=== PATIENT | male | born 1970 | race Caucasian/White ===

== ENCOUNTER 2016-07-01 15:20 | Emergency (ER) | payer OTHER ==
[2016-07-01 15:37] VITALS: BP 122/76; PULSE 85; TEMP 97.4; BMI 26.4
[2016-07-01] MEDS ORDERED: ALBUTEROL SO4 2.5/IPRATROPIUM 0.5 INH SOL 3 ML VIAL.NEB. NEB ONE ×2 (17:14)
[2016-07-01] MEDS ORDERED: guaiFENesin/CODEINE 10 ML UNIT-DOSE CUPS PO ONE (17:15)
[2016-07-01] MEDS ORDERED: guaiFENesin/CODEINE 5 ML UNIT-DOSE CUPS PO ONE (17:24)
[2016-07-01] MEDS ORDERED: methylPREDNISolone NA SUCC 125 MG/2 ML VIAL IVPB ONE (18:17)
[2016-07-01] MEDS ORDERED: SODIUM CHLORIDE 1,000 ML IV STA (18:17)
--- NOTE | 2016-07-01 18:22 | PDOC ---
[id number] Illness Initial Comments: 07/01/16 18:27 Mr. Kunz is a 45 y/o male with a PMH of pneumonia, presents to the ED today complaining of increasing SOB. Pt. states that he cannot catch his breath and is having difficulty speaking in full sentences. He admits to chest pain with a deep breath or coughing. He also states that he has been coughing and when he has a fit, it is hard to stop coughing. He had an out patient x-ray on 06/28/16 which showed potential brochiectasis and pneumonitis. He was given augmentin and doxycylin at that time. He was also given an albuterol inhaler. He states he 's had no improvement of his symptoms with antibiotic treatment. Four of his five children have been diagnosed with strep throat. He states that he is worried about his mother who is currently admitted to the hospital. REVIEW OF SYSTEMS: GENERAL/CONSTITUTIONAL: No fever or chills. No weakness. No weight change. HEAD, EYES, EARS, NOSE AND THROAT: No change in vision. No ear pain or discharge. No sore throat. CARDIOVASCULAR: (-) chest pain or palpitations. RESPIRATORY: (+) cough, wheezing, or shortness of breath. GASTROINTESTINAL: No nausea, vomiting, diarrhea or constipation. GENITOURINARY: No dysuria, frequency, or change in urination. MUSCULOSKELETAL: No joint or muscle swelling or pain. No neck or back pain. SKIN: No rash or easy bruising. NEUROLOGIC: No headache, vertigo, loss of consciousness, or loss of sensation. PSYCHIATRIC: No depression or anxiety. ENDOCRINE: No increased thirst. No abnormal weight change. HEMATOLOGIC/LYMPHATIC: No anemia, easy bleeding, or history of blood clots. ALLERGIC/IMMUNOLOGIC: No hives or skin allergy. No latex allergy. <Gauri Brown - Last Filed: 07/01/16 19:11> <Anni Hatfield - Last Filed: 07/01/16 21:53> <Ceci Singh - Last Filed: 07/04/16 15:13> - General Chief Complaint: Respiratory Stated Complaint: RESPIRATORY (PNEUMONIA) Time Seen by Provider: 07/01/16 16:48 Past History - Past Medical History Anemia: No Asthma: No Cancer: No Cardiac Disorders: No CVA: No COPD: No CHF: No Dementia: No Diabetes: No GI Disorders: No Disorders: No HTN: No Hypercholesterolemia: No Suicide Attempt (Hx): No Seizures: No Thyroid Disease: Yes (HYPO) - Surgical History Abdominal Surgery: Yes (RT IN HERNIA) Appendectomy: No Cardiac Surgery: No Cholecystectomy: No Lung Surgery: No Neurologic Surgery: No Orthopedic Surgery: Yes (RT LEG,LT ARM FX) - Immunization History Td Vaccination: Yes TDAP Vaccination: Yes Immunization Up to Date: Yes - Psycho/Social/Smoking Cessation Hx Anxiety: No Suicidal Ideation: No Smoking Status: No Smoking History: Never smoked Years of Tobacco Use: 0 Have you smoked in the past 12 months: No Number of Cigarettes Smoked Daily: 0 Cigars Per Day: 0 Hx Alcohol Use: Yes (SOCIAL) Drug/Substance Use Hx: No Substance Use Type: None <Gauri Brown - Last Filed: 07/01/16 19:11> <Anni Hatfield - Last Filed: 07/01/16 21:53> <Ceci Singh - Last Filed: 07/04/16 15:13> - Past Medical History Allergies/Adverse Reactions: Allergies Allergy/AdvReac Type Severity Reaction Status Date / Time No Known Allergies Allergy Verified 07/01/16 15:37 Home Medications: Ambulatory Orders Albuterol 2.5/Ipratropium 0.5 [Duoneb -] 1 amp NEB Q15M amp 07/01/16 Albuterol Sulfate Inhaler - [Ventolin HFA Inhaler -] 1 - 2 inh PO Q4H PRN #1 inhaler 07/01/16 Amox-Tr/K Cl [Augmentin 875-125mg Tablet -] 1 tab PO BID 07/01/16 Doxycycline Hyclate 100 mg PO BID 07/01/16 Levothyroxine Sodium [Levo-T] 150 mcg PO DAILY 07/01/16 Prednisone 10 mg PO ASDIR #21 tablet 07/01/16 Promethazine HCl [Phenergan Plain 6.25 MG/5 ML -] 10 ml PO BID 07/01/16 *Physical Exam - Vital Signs Last Vital Signs Temp Pulse Resp BP Pulse Ox 97.4 F L 85 20 122/76 98 07/01/16 15:34 07/01/16 15:34 07/01/16 15:34 07/01/16 15:34 07/01/16 15:34 - Physical Exam Comments: 07/01/16 18:42 GENERAL: The patient is awake, alert, and fully oriented, in mild distress. Pt. is tripoding. HEAD: Normal with no signs of trauma. ENT: Pupils equal, round and reactive to light, extraocular movements intact, sclera anicteric, conjunctiva clear. Neck supple. LUNGS: Course wheezing bilaterally. Normal excursion. No respiratory distress or use of accessory muscles. CV: RRR, S1/S2, no MRG. Cap refill < 2 sec. ABDOMEN: Soft, non-distended, non-tender. EXTREMITIES: Normal range of motion, no edema. NEUROLOGICAL: Normal speech, normal gait. CN II-XII grossly intact. PSYCH: Flat affect, depressed mood. Pt. seems anxious on exam. SKIN: Warm, dry, normal turgor, no rashes or lesions noted. 07/01/16 18:44 <Gauri Brown - Last Filed: 07/01/16 19:11> - Vital Signs Last Vital Signs Temp Pulse Resp BP Pulse Ox 97.4 F L 85 20 122/76 98 07/01/16 15:34 07/01/16 15:34 07/01/16 15:34 07/01/16 15:34 07/01/16 15:34 <Anni Hatfield - Last Filed: 07/01/16 21:53> - Vital Signs Last Vital Signs Temp Pulse Resp BP Pulse Ox 97.4 F L 85 20 122/76 98 07/01/16 15:34 07/01/16 15:34 07/01/16 15:34 07/01/16 15:34 07/01/16 15:34 <Ceci Singh - Last Filed: 07/04/16 15:13> ED Treatment Course - LABORATORY CBC & Chemistry Diagram: 07/01/16 18:40 07/01/16 18:40 <Gauri Brown - Last Filed: 07/01/16 19:11> - LABORATORY CBC & Chemistry Diagram: 07/01/16 18:40 07/01/16 18:40 - ADDITIONAL ORDERS Additional order review: Laboratory Results 07/01/16 18:40 Sodium 140 Potassium 3.5 Chloride 104 Carbon Dioxide 23 D Anion Gap 13 BUN 18 Creatinine 0.9 D Creat Clearance w eGFR > 60 Random Glucose 102 Calcium 8.4 L Total Bilirubin 0.4 D AST 14 L ALT 21 D Alkaline Phosphatase 67 Total Protein 7.2 Albumin 3.8 07/01/16 17:23 Influenza Types A,B Antigen (JONO) - Final Nasopharyngeal Swab - Final 07/01/16 18:40 RBC 4.93 MCV 93.6 MCHC 34.3 RDW 13.1 MPV 8.3 Neutrophils % 51.1 D Lymphocytes % 37.6 D Monocytes % 8.2 Eosinophils % 1.9 D Basophils % 1.2 - RADIOLOGY Radiology Studies Ordered: Category Date Time Status CHEST CTA [CT] Stat CT Scan 07/01/16 19:37 Taken - Medications Given in the ED: ED Medications Discontinued Medications Generic Name Dose Route Start Last Admin Trade Name Freq PRN Reason Stop Dose Admin Albuterol/Ipratropium 1 amp 07/01/16 17:14 07/01/16 17:23 Duoneb - NEB 07/01/16 17:15 1 amp ONCE ONE Administration Albuterol/Ipratropium 1 amp 07/01/16 18:30 07/01/16 19:17 Duoneb - NEB 07/01/16 19:01 1 amp Q15M LEORA Administration Guaifenesin/Codeine Phosphate 10 ml 07/01/16 17:15 07/01/16 17:35 Robitussin Ac - PO 07/01/16 17:16 10 ml ONCE ONE Administration Sodium Chloride 1,000 mls @ 1,000 mls/hr 07/01/16 18:17 07/01/16 18:35 Normal Saline - IV 07/01/16 19:16 1,000 mls/hr ASDIR STA Administration Methylprednisolone Sodium Succinate 125 mg 07/01/16 18:17 07/01/16 18:40 Solu-Medrol - IVPB 07/01/16 18:18 125 mg ONCE ONE Administration <Anni Hatfield D - Last Filed: 07/01/16 21:53> - LABORATORY CBC & Chemistry Diagram: 07/01/16 18:40 07/01/16 18:40 - ADDITIONAL ORDERS Additional order review: 07/01/16 17:23 Influenza Types A,B Antigen (JONO) - Final Nasopharyngeal Swab - Final 07/01/16 18:40 RBC 4.93 MCV 93.6 MCHC 34.3 RDW 13.1 MPV 8.3 Neutrophils % 51.1 D Lymphocytes % 37.6 D Monocytes % 8.2 Eosinophils % 1.9 D Basophils % 1.2 - Medications Given in the ED: ED Medications Discontinued Medications Generic Name Dose Route Start Last Admin Trade Name Sulaiman PRN Reason Stop Dose Admin Albuterol/Ipratropium 1 amp 07/01/16 17:14 07/01/16 17:23 Duoneb - NEB 07/01/16 17:15 1 amp ONCE ONE Administration Albuterol/Ipratropium 1 amp 07/01/16 18:30 07/01/16 19:17 Duoneb - NEB 07/01/16 19:01 1 amp Q15M LEORA Administration Guaifenesin/Codeine Phosphate 10 ml 07/01/16 17:15 07/01/16 17:35 Robitussin Ac - PO 07/01/16 17:16 10 ml ONCE ONE Administration Sodium Chloride 1,000 mls @ 1,000 mls/hr 07/01/16 18:17 07/01/16 18:35 Normal Saline - IV 07/01/16 19:16 1,000 mls/hr ASDIR STA Administration Methylprednisolone Sodium Succinate 125 mg 07/01/16 18:17 07/01/16 18:40 Solu-Medrol - IVPB 07/01/16 18:18 125 mg ONCE ONE Administration <Ceci Singh - Last Filed: 07/04/16 15:13> Medical Decision Making - Medical Decision Making 07/01/16 17:45 Mr. Kunz is a 45 y/o male presenting to the ED with worsening SOB. On initial general apearrance, pt. appears to be SOB and having difficulty speaking in full sentences. However, pt calms down when speaking with him and pt. will sit up to breathe with little issue. On exam, pt. affect is flat and pt. makes poor eye contact. He is tearful and states he is worried about his mother who is in the hospital. Will treat symptoms at this time and draw basic labs and swabs for source of infection. 1. Will order basic labs, flu swab and EKG 2. Will order repeat CXR to compare to the xray on 06/28/16. 3. Will order duoneb treatment and robitussin with codeine for symptom management Will re-evaluate 07/01/16 18:25 Pt. states that the duoneb treatment seemed to help. Will order a duoneb set (3 duonebs 15 minutes a part). Will also order IV solumedrol at this time. He can continue to take his home medications at this time. EKG shows a rate of 77, NSR, with no acute ischemic changes. 07/01/16 18:40 Influenza swab is negative. Waiting on CXR read. 07/01/16 19:12 Pt. is feeling better after duoneb treatments. Sign out given to Liu Scruggs. Case was discussed. Waiting on labs and CXR. Pt. can be discharged if no acute changes. <Gauri Brown - Last Filed: 07/01/16 19:11> *DC/Admit/Observation/Transfer <Gauri Brown - Last Filed: 07/01/16 19:11> - Discharge Dispostion Admit: No <Anni Hatfield - Last Filed: 07/01/16 21:53> - Attestations Physician Attestion: I independently examined and evaluated this patient in conjunction with SHEILA Brown, mid-level practitioner. I reviewed the case and agree with the mid- level practitioner's assessment, diagnosis and disposition. On exam patient is ill-appearing with a depressed affect. Speaking full sentences, moving air well on lung exam. CXR reviewed, showed poss pneumonitis. Will treat with nebs, steroids. Poss DC home if improved. <Ceci Singh - Last Filed: 07/04/16 15:13> Diagnosis at time of Disposition: Pneumonitis - Discharge Dispostion Disposition: HOME - Prescriptions Prescriptions: Prednisone 10 mg PO ASDIR #21 tablet Albuterol Sulfate Inhaler - [Ventolin HFA Inhaler -] 1 - 2 inh PO Q4H PRN #1 inhaler PRN Reason: DIFF BREATHING - Referrals Referrals: Saeid Ashley MD [Primary Care Provider] - - Patient Instructions Printed Discharge Instructions: DI for Pneumonia -- Adult Additional Instructions: FOLLOW UP WITH YOUR DOCTOR DISCUSSED. CONTINUE TAKING YOUR MEDICATIONS PRESCRIBED. TAKE MEDICATIONS DIRECTED. RETURN IF WORSENING OF SYMPTOMS OR ANY CONCERNS FOR FURTHER EVALUATION. Print Language: SLOVAK Progress Note - Progress Note Progress Note: PATIENT CONDITION IMPROVED. TALKING IN FULL SENTENCES. NO SOB/DYSPNEA. CTA- NO PE. +GALLSTONES. WILL D/C TO HOME WITH RX FOR PREDNISONE AND INHALER. PATIENT AGREED TO F/U WITH PCP. <Anni Hatfield D - Last Filed: 07/01/16 21:53>
[2016-07-01] MEDS ORDERED: methylPREDNISolone NA SUCC 125 MG/2 ML VIAL ONE (18:28)
[2016-07-01] MEDS: ALBUTEROL SO4 2.5/IPRATROPIUM 0.5 INH SOL 3 ML VIAL.NEB. NEB SCH ×3 (18:30→19:17)
[2016-07-01 18:53] LABS: BASOPHIL 1.2 % (0-2.0); EOSINOPHIL 1.9 % (0-4.5); MCH 32.1 pg (25.7-33.7); MCHC 34.3 g/dl (32.0-35.9); MEAN CELL VOLUME 93.6 fl (80-96); MEAN PLT VOLUME 8.3 fl (7.5-11.1); NEUTROPHILS 51.1 % (42.8-82.8); PLATELET COUNT 161 K/MM3 (134-434); RDW 13.1 % (11.9-15.9); WHITE BLOOD COUNT 4.6 K/mm3 (4.0-10.0)
[2016-07-01 20:03] LABS: ALBUMIN 3.8 g/dl (3.4-5.0); ALK PHOS 67 U/L (45-117); ANION GAP 13 (8-16); BILIRUBIN,TOTAL 0.4 mg/dL (0.2-1.0); CALCIUM 8.4 mg/dL (8.5-10.1); CO2 23 mmol/L (21-32); CREATININE 0.9 mg/dL (0.7-1.3); GLUCOSE,RANDOM 102 mg/dL (74-106); SGOT/AST 14 U/L (15-37); SGPT/ALT 21 U/L (12-78); TOT PROT 7.2 g/dl (6.4-8.2)
--- NOTE | 2016-07-02 10:27 | EKG ---
Test Reason : Blood Pressure : / mmHG Vent. Rate : 077 BPM Atrial Rate : 077 BPM P-R Int : 164 ms QRS Dur : 074 ms QT Int : 356 ms P-R-T Axes : 049 -03 033 degrees QTc Int : 402 ms NORMAL SINUS RHYTHM SEPTAL INFARCT , AGE UNDETERMINED ABNORMAL ECG WHEN COMPARED WITH ECG OF 12-MAY-2015 03:24, FUSION COMPLEXES ARE NO LONGER PRESENT SEPTAL INFARCT IS NOW PRESENT Confirmed by CLARK CAGLE, ALLISON ([id number]) on 07/02/2016 10:26:49 AM Referred By: Confirmed By:ALLISON RODAS MD
== END 2016-07-01 22:10 | disposition home or self-care (01) ==
LOC: JER 15:20
PROC: 3E0F7GC Introduction of Other Therapeutic Substance into Respiratory Tract, Via Natural or Artificial Opening (ICD-10-PCS; principal; 2016-07-01)
PROC: 3E0F7GC Introduction of Other Therapeutic Substance into Respiratory Tract, Via Natural or Artificial Opening (ICD-10-PCS; 2016-07-01)
PROC: 3E0337Z Introduction of Electrolytic and Water Balance Substance into Peripheral Vein, Percutaneous Approach (ICD-10-PCS; 2016-07-01)
PROC: 3E0333Z Introduction of Anti-inflammatory into Peripheral Vein, Percutaneous Approach (ICD-10-PCS; 2016-07-01)
DX: J18.9 Pneumonia, unspecified organism (principal)
CPT/HCPCS: 36415; 71020-TC; 71275-TC; 80053; 85025; 87804; 93005; 93010; 94640; 96361; 96374; 99283-25

== ENCOUNTER 2017-08-23 18:12 | Observation (INO) | payer OTHER ==
[2017-08-23] MEDS ORDERED: KETOROLAC TROMETHAMINE 30 MG/1 ML VIAL IM ONE (18:23)
[2017-08-23] MEDS ORDERED: CYCLOBENZAPRINE HCL 10 MG TABLET (FP) PO ONE (18:23)
--- NOTE | 2017-08-23 18:23 | PDOC ---
Rapid Medical Evaluation Time Seen by Provider: 08/23/17 18:17 Medical Evaluation: Allergies Allergy/AdvReac Type Severity Reaction Status Date / Time No Known Allergies Allergy Verified 07/01/16 15:37 08/23/17 18:17 I have performed a brief in-person evaluation of this patient. The patient presents with a chief complaint of: pain to right chest since 5am Patient reports pain to right chest radiating into right shoulder making it hard to lift right arm. Patient reports pain is worse with movement. States work lifting Pertinent physical exam findings: NAD lungs clear bilaterally tenderness in right chest unable to abduct and adduct right arm I have ordered the following: Ekg, analgesia ordered The patient will proceed to the ED for further evaluation.
[2017-08-23] MEDS ORDERED: diazePAM 5 MG TABLET PO ONE (18:52)
[2017-08-23] MEDS ORDERED: KETOROLAC TROMETHAMINE 60 MG/2 ML VIAL IM ONE (18:52)
[2017-08-23] MEDS ORDERED: diazePAM 5 MG TABLET ONE (18:54)
[2017-08-23] MEDS ORDERED: KETOROLAC TROMETHAMINE 60 MG/2 ML VIAL ONE (18:54)
--- NOTE | 2017-08-23 18:58 | PDOC ---
History of Present Illness - General Chief Complaint: Pain Stated Complaint: CHEST PAIN Time Seen by Provider: 08/23/17 18:17 History Source: Patient Exam Limitations: No Limitations - History of Present Illness Initial Comments: 08/23/17 18:53 Patient here in obvious significant pain from right sided pain to shoulder and Neck. 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 And has intermittent pain from that however patient states this pain does not feel the same. 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 States was difficult to get out of the car, therefore went and immediately got in hot shower which seemed to help some of the pain up his shoulder. However patient states was unable to sleep secondary to recurrence of this pain which is still progressively worsened. Patient came to emergency department for evaluation. Denies numbness or tingling to hand, denies any palpitations or history of cardiac disease, denies shortness of breath or cough although is painful when takes deep inspiration at same right side. No fevers, no vomiting patient states the pain is causing some mild nausea. Occurred: reports: this morning, yesterday Severity: reports: moderate, severe Pain Location: reports: back, chest, neck Method of Injury: Yes: unknown Loss of Consciousness: no loss of consciousness Associated Symptoms (Fall): headache Past History - Travel Traveled outside of the country in the last 30 days: No Close contact w/someone who was outside of country & ill: No - Past Medical History Allergies/Adverse Reactions: Allergies Allergy/AdvReac Type Severity Reaction Status Date / Time No Known Allergies Allergy Verified 08/23/17 18:18 Home Medications: Ambulatory Orders Levothyroxine Sodium [Levo-T] 150 mcg PO DAILY 07/01/16 Cyclobenzaprine HCl 10 mg PO Q8H PRN #14 tablet 08/23/17 Ibuprofen 400 mg PO Q6H PRN #30 tablet 08/23/17 Anemia: No Asthma: No Cancer: No Cardiac Disorders: No CVA: No COPD: No CHF: No Dementia: No Diabetes: No GI Disorders: No Disorders: No HTN: No Hypercholesterolemia: No Seizures: No Thyroid Disease: Yes (HYPO) - Surgical History Abdominal Surgery: Yes (RT IN HERNIA) Appendectomy: No Cardiac Surgery: No Cholecystectomy: No Lung Surgery: No Neurologic Surgery: No Orthopedic Surgery: Yes (RT LEG,LT ARM FX) - Immunization History Td Vaccination: Yes TDAP Vaccination: Yes Immunization Up to Date: Yes - Suicide/Smoking/Psychosocial Hx Smoking Status: No Smoking History: Never smoked Years of Tobacco Use: 0 Have you smoked in the past 12 months: No Number of Cigarettes Smoked Daily: 0 Cigars Per Day: 0 Hx Alcohol Use: Yes (SOCIAL) Drug/Substance Use Hx: No Substance Use Type: None Trauma Specific PMHX - Complaint Specific PMHX Back Injury: Yes Review of Systems - Review of Systems Able to Perform ROS?: Yes Is the patient limited Gambian proficient: Yes Constitutional: Yes: Symptoms Reported, See HPI, Malaise. No: Chills, Fever HEENTM: Yes: Symptoms Reported Respiratory: Yes: See HPI. No: Symptoms reported, Cough Musculoskeletal: Yes: Symptoms Reported, See HPI Integumentary: Yes: See HPI. No: Symptoms Reported Neurological: Yes: Symptoms reported, See HPI, Headache. No: Numbness All Other Systems: Reviewed and Negative *Physical Exam - Vital Signs Last Vital Signs Temp Pulse Resp BP Pulse Ox 99.4 F 98 H 18 141/88 97 08/23/17 18:19 08/23/17 18:19 08/23/17 18:19 08/23/17 18:19 08/23/17 18:19 - Physical Exam General Appearance: Yes: Nourished, Appropriately Dressed, Apparent Distress, Moderate Distress HEENT: positive: ZOHAIB, Normal ENT Inspection, TMs Normal, Pharynx Normal Neck: positive: Tender, Supple, Lymphadenopathy (R), Lymphadenopathy (L), Other (palpable spasm tense musculature with some mild swelling to the right shoulder capsule. Worse to the anterior aspect and extending to upper pectoralis muscles and wraparound to sternocleidomastoid insertions and upper trapezius muscles. Patient has no range of motion secondary to the significant spasm. Is able to flex and extend wrist, and has strong grasp with neurovascular intact to fingers however supination and pronation at wrist reproduces pain along upper arm and into shoulder. No rashes or lesions, no true bone tenderness along clavicle, scapula, or cervical spine.). negative: Trachea midline Respiratory/Chest: positive: Lungs Clear, Normal Breath Sounds. negative: Chest Tender Cardiovascular: positive: Regular Rhythm Gastrointestinal/Abdominal: positive: Soft. negative: Tender Musculoskeletal: positive: Normal Inspection, Decreased Range of Motion, Muscle Spasm. negative: CVA Tenderness, CVA Tenderness (L), Vertebral Tenderness Extremity: positive: Normal Capillary Refill, Normal Inspection, Normal Range of Motion, Tender, Pelvis Stable Integumentary: positive: Dry, Warm, Pale. 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 Treated with Toradol and 5 mg of Valium tablet here Medical Decision Making - Medical Decision Making 08/23/17 20:00 Patinet states no relief from Valium 5 mg and IM Toradol 60 mg. Patient states in fact his pain has progressively become worse with spasm radiating up to his neck and scalp. Patient is pale, tachycardic, and obvious discomfort. Patient will be moved to main emergency department for stronger pain management, and potential other testing and treatments. Tan Warren NP given turnover and charge nurse updated. To room 3 emergency department 08/24/17 12:02 *DC/Admit/Observation/Transfer Diagnosis at time of Disposition: Back sprain or strain, Intractable pain - Discharge Dispostion Condition at time of disposition: Stable Admit: No - Prescriptions - Referrals - Patient Instructions - Post Discharge Activity
[2017-08-23] MEDS ORDERED: LIDOCAINE 5% TOPICAL PATCH TP ONE (20:28)
--- NOTE | 2017-08-23 20:28 | PDOC ---
*Physical Exam - Vital Signs Last Vital Signs Temp Pulse Resp BP Pulse Ox 99.4 F 98 H 18 141/88 97 08/23/17 18:19 08/23/17 18:19 08/23/17 18:19 08/23/17 18:19 08/23/17 18:19 ED Treatment Course - LABORATORY CBC & Chemistry Diagram: 08/23/17 23:00 08/23/17 23:00 - Medications Given in the ED: ED Medications Discontinued Medications Generic Name Dose Route Start Last Admin Trade Name Freq PRN Reason Stop Dose Admin Cyclobenzaprine HCl 10 mg 08/23/17 18:23 08/23/17 19:00 Flexeril - PO 08/23/17 18:24 Not Given ONCE ONE Diazepam 5 mg 08/23/17 18:52 08/23/17 19:00 Valium - PO 08/23/17 18:53 5 mg ONCE ONE Administration Ketorolac Tromethamine 30 mg 08/23/17 18:23 08/23/17 19:00 Toradol Injection - IM 08/23/17 18:24 Not Given ONCE ONE Ketorolac Tromethamine 60 mg 08/23/17 18:52 08/23/17 19:00 Toradol Injection - IM 08/23/17 18:53 60 mg ONCE ONE Administration Medical Decision Making - Medical Decision Making 08/23/17 21:19 Received signout from nurse practitioner Puma. Patient with muscle spasms noted to right sided trapezius, sternocleidomastoid and pectoral muscle. Patient has received Flexeril, Toradol, Valium with minimal relief of spasms and /or pain. I stop performed. Patient has not had any prescriptions for pain since 2016. I'll give the patient Percocet 2 tabs apply Lidoderm patch. Reassess 08/24/17 01:30 EKG normal sinus rhythm. Labs unremarkable. Case discussed with Dr. Spence who is covering for Dr. Ashley at this time. Patient for med/surg observation. *DC/Admit/Observation/Transfer Diagnosis at time of Disposition: Back sprain or strain, Intractable pain - Discharge Dispostion Condition at time of disposition: Stable Admit: Yes - Prescriptions Prescriptions: Cyclobenzaprine HCl 10 mg PO Q8H PRN #14 tablet PRN Reason: spasm Ibuprofen 400 mg PO Q6H PRN #30 tablet PRN Reason: Pain - Referrals Referrals: Saeid Ashley MD [Primary Care Provider] - - Patient Instructions Additional Instructions: Rest, no heavy lifting or exercise until pain is resolved Hot soaks to neck and low back as often as possible/hot showers or Jacuzzis No massage or therapy until spasm is gone Continue ibuprofen 2-200 mg tablets every 6 hours for the next 3 days then as needed for pain and swelling Cyclobenzaprine 1-10mg every 8 hours as needed for spasm If not significant improvement within 24 hours with medication and rest regime, followup with private physician for change in medications and /or therapy. - Post Discharge Activity Forms/Work/School Notes: Back to Work
[2017-08-23] MEDS ORDERED: LIDOCAINE 5% TOPICAL PATCH ONE (20:37)
[2017-08-23] MEDS: LIDOCAINE PATCH REMOVAL MC SCH (22:03)
[2017-08-23] MEDS ORDERED: METHOCARBAMOL 750 MG TABLET PO ONE (22:34)
[2017-08-23] MEDS ORDERED: METHOCARBAMOL 500 MG TABLET ONE (23:02)
[2017-08-23 23:19] LABS: EOS % 1.5 % (0-4.5); HEMOGLOBIN 14.4 GM/dL (11.7-16.9); LYMPH % 30.5 % (8-40); MCH 32.3 pg (25.7-33.7); MEAN CELL VOLUME 92.3 fl (80-96); MEAN PLT VOLUME 8.1 fl (7.5-11.1); MONO % 10.2 % (3.8-10.2); NEUT % 56.8 % (42.8-82.8); PLATELET COUNT 167 K/MM3 (134-434); RBC 4.45 M/mm3 (4.00-5.60); RDW 13.9 % (11.9-15.9); WHITE BLOOD COUNT 4.6 K/mm3 (4.0-10.0)
[2017-08-24 00:06] LABS: ALBUMIN 3.6 g/dl (3.4-5.0); ALK PHOS 56 U/L (45-117); ANION GAP 9 (8-16); BILIRUBIN,TOTAL 0.7 mg/dL (0.2-1.0); BLOOD UREA NITROGEN 17 mg/dL (7-18); CALCIUM 8.4 mg/dL (8.5-10.1); CHLORIDE 108 mmol/L (98-107); CO2 25 mmol/L (21-32); CREATININE 1.2 mg/dL (0.7-1.3); GLUCOSE,RANDOM 129 mg/dL (74-106); SGPT/ALT 42 U/L (12-78); SODIUM 142 mmol/L (136-145); TOT PROT 6.8 g/dl (6.4-8.2)
[2017-08-24 00:42] LABS: POTASSIUM 4.4 mmol/L (3.5-5.1); SGOT/AST 33 U/L (15-37)
--- NOTE | 2017-08-24 02:42 | PDOC ---
*Physical Exam - Vital Signs Last Vital Signs Temp Pulse Resp BP Pulse Ox 98.7 F 67 15 110/54 95 08/24/17 01:04 08/24/17 01:04 08/24/17 01:04 08/24/17 01:04 08/24/17 01:04 ED Treatment Course - LABORATORY CBC & Chemistry Diagram: 08/23/17 23:00 08/23/17 23:00 - ADDITIONAL ORDERS Additional order review: Laboratory Results 08/23/17 23:00 Sodium 142 Potassium 4.4 D Chloride 108 H Carbon Dioxide 25 Anion Gap 9 BUN 17 Creatinine 1.2 D Creat Clearance w eGFR > 60 Random Glucose 129 H D Calcium 8.4 L Total Bilirubin 0.7 D AST 33 D ALT 42 D Alkaline Phosphatase 56 Total Protein 6.8 Albumin 3.6 08/23/17 23:00 RBC 4.45 MCV 92.3 MCHC 35.0 RDW 13.9 MPV 8.1 Neutrophils % 56.8 Lymphocytes % 30.5 Monocytes % 10.2 Eosinophils % 1.5 Basophils % 1.0 - Medications Given in the ED: ED Medications Discontinued Medications Generic Name Dose Route Start Last Admin Trade Name Freq PRN Reason Stop Dose Admin Cyclobenzaprine HCl 10 mg 08/23/17 18:23 08/23/17 19:00 Flexeril - PO 08/23/17 18:24 Not Given ONCE ONE Diazepam 5 mg 08/23/17 18:52 08/23/17 19:00 Valium - PO 08/23/17 18:53 5 mg ONCE ONE Administration Ketorolac Tromethamine 30 mg 08/23/17 18:23 08/23/17 19:00 Toradol Injection - IM 08/23/17 18:24 Not Given ONCE ONE Ketorolac Tromethamine 60 mg 08/23/17 18:52 08/23/17 19:00 Toradol Injection - IM 08/23/17 18:53 60 mg ONCE ONE Administration Lidocaine 1 patch 08/23/17 20:28 08/23/17 20:32 Lidoderm Patch - TP 08/23/17 20:29 1 patch ONCE ONE Administration Methocarbamol 1,500 mg 08/23/17 22:34 08/23/17 23:14 Robaxin - PO 08/23/17 22:35 1,500 mg ONCE ONE Administration Oxycodone/Acetaminophen 2 combo 08/23/17 20:28 08/23/17 20:33 Percocet 5/325 - PO 08/23/17 20:29 2 combo ONCE ONE Administration Medical Decision Making - Medical Decision Making 08/24/17 02:42 Pt seen by the Advanced Practice Provider under my direct supervision Ancillary studies reviewed I agree with plan as outlined by the Advanced Practice Provider *DC/Admit/Observation/Transfer Diagnosis at time of Disposition: Back sprain or strain, Intractable pain - Discharge Dispostion Condition at time of disposition: Stable - Prescriptions Prescriptions: Cyclobenzaprine HCl 10 mg PO Q8H PRN #14 tablet PRN Reason: spasm Ibuprofen 400 mg PO Q6H PRN #30 tablet PRN Reason: Pain - Referrals Referrals: Saeid Ashley MD [Primary Care Provider] - - Patient Instructions Additional Instructions: Rest, no heavy lifting or exercise until pain is resolved Hot soaks to neck and low back as often as possible/hot showers or Jacuzzis No massage or therapy until spasm is gone Continue ibuprofen 2-200 mg tablets every 6 hours for the next 3 days then as needed for pain and swelling Cyclobenzaprine 1-10mg every 8 hours as needed for spasm If not significant improvement within 24 hours with medication and rest regime, followup with private physician for change in medications and /or therapy. - Post Discharge Activity Forms/Work/School Notes: Back to Work
[2017-08-24] MEDS ORDERED: HYDROmorphone HCL CARPU-JECT 1 MG/1 ML DISP.SYRIN IVPB PRN (08:36)
[2017-08-24] MEDS ORDERED: ONDANSETRON 4 MG/2 ML VIAL IVPUSH PRN (08:36)
--- NOTE | 2017-08-24 08:38 | HP ---
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 States was difficult to get out of the car, therefore went and immediately got in hot shower which seemed to help some of the pain up his shoulder. However patient states was unable to sleep secondary to recurrence of this pain which is still progressively worsened. Patient came to emergency department for evaluation. Denies numbness or tingling to hand, denies any palpitations or history of cardiac disease, denies shortness of breath or cough although is painful when takes deep inspiration at same right side. Patient No fevers, no vomiting patient states the pain is causing some mild nausea. History Source: Patient - Past Medical History Endocrine: Yes: Hypothyroidism - Smoking History Smoking history: Never smoked Have you smoked in the past 12 months: No Aproximately how many cigarettes per day: 0 - Alcohol/Substance Use Hx Alcohol Use: Yes (SOCIAL) - Social History Usual Living Arrangement: Yes: With Spouse Home Medications - Allergies Allergies/Adverse Reactions: Allergies Allergy/AdvReac Type Severity Reaction Status Date / Time No Known Allergies Allergy Verified 08/23/17 18:18 - Home Medications Home Medications: Ambulatory Orders Levothyroxine Sodium [Levo-T] 150 mcg PO DAILY 07/01/16 Cyclobenzaprine HCl 10 mg PO Q8H PRN #14 tablet 08/23/17 Ibuprofen 400 mg PO Q6H PRN #30 tablet 08/23/17 Family Disease History - Family Disease History Family History: Unremarkable Review of Systems - Review of Systems Constitutional: denies: Chills, Diaphoresis, Fever Eyes: denies: Blind Spots, Blurred Vision, Double Vision HENT: denies: Difficult Swallowing, Ear Discharge, Ear Pain Neck: reports: Decreased ROM, Pain on Movement, Stiffness. denies: Lumps Cardiovascular: denies: Chest Pain, Edema, Palpitations Respiratory: reports: SOB. denies: Cough, Exercise Intolerance, Hemoptysis, Orthopnea, PND, Snoring Gastrointestinal: denies: Abdominal Pain, Bloating, Constipation Genitourinary: denies: Burning, Discharge Musculoskeletal: reports: Back Pain, Decreased ROM Integumentary: denies: Blister, Bruising Neurological: denies: Change in LOC, Change in Speech, Confusion Psychiatric: reports: Depression. denies: Altered Sleep Pattern, Anxiety Physical Examination Vital Signs: Vital Signs Temperature 98.5 F 08/24/17 04:08 Pulse Rate 87 08/24/17 04:08 Respiratory Rate 17 08/24/17 04:08 Blood Pressure 118/80 08/24/17 04:08 O2 Sat by Pulse Oximetry (%) 99 08/24/17 04:08 Constitutional: Yes: Well Nourished, No Distress, Calm Eyes: Yes: Conjunctiva Clear, EOM Intact. No: Cataracts, Diplopia HENT: Yes: Atraumatic, Normocephalic. No: Drooling, Epistaxis Neck: Yes: Trachea Midline, Decreased ROM, Tenderness. No: Lymphadenopathy Cardiovascular: Yes: Regular Rate and Rhythm, JVD, S1, S2, S3. No: Gallop, Murmur Respiratory: Yes: CTA Bilaterally, Other (Chest wall Tenderness on Rt Pectoral are and posteriorly). No: Tachypnea, Wheezes Gastrointestinal: Yes: Normal Bowel Sounds ...Rectal Exam: Yes: Deferred Renal/: No: Bladder Distention, CVA Tenderness - Left Breast(s): Yes: Left Extremities: Yes: External Rotation Edema: RUE: 1+, LLE: 1+ Wound/Incision: Yes: Dressing Dry and Intact ...Motor Strength: WNL, LUE, LLE, RUE, RLE Labs: CBC, BMP 08/23/17 23:00 08/23/17 23:00 Imaging - Results X-ray: Report Reviewed (cta B?L) MRI: Report Reviewed (08/04/17 Cervicle; C5-6 C6-7 Herniation) Problem List - Problems (1) Intractable pain Assessment/Plan: Chest wall pain reproducible most likely muscle soasm or myofascitis [id number] mg TID, Morhine 2 mg Q 8Hrly, Flexeril, Orthopaedics consultation Code(s): R52 - PAIN, UNSPECIFIED (2) Hypothyroid Assessment/Plan: Cont Levothyroxine F/U TSH Code(s): E03.9 - HYPOTHYROIDISM, UNSPECIFIED
[2017-08-24] MEDS ORDERED: SODIUM CHLORIDE 1,000 ML IV STA (09:13)
[2017-08-24] MEDS: IBUPROFEN 600 MG TABLET (FP) PO PRN (11:32)
[2017-08-24] MEDS: LEVOTHYROXINE NA 150 MCG TABLET PO SCH (11:37)
[2017-08-24] MEDS: ACETAMINOPHEN WITH CODEINE 300MG/30MG TABLET PO PRN ×3 (13:07→21:03)
[2017-08-24] MEDS ORDERED: CYCLOBENZAPRINE HCL 5 MG TABLET PO SCH (14:00)
[2017-08-24 14:04] VITALS: BMI 32.3
[2017-08-24] MEDS ORDERED: morphine SULFATE 4 MG/ML VIAL IVPB PRN (17:45)
[2017-08-24] MEDS: morphine SULFATE 4 MG/ML VIAL IVPB PRN ×2 (17:55→23:40)
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
[2017-08-24] MEDS: CYCLOBENZAPRINE HCL 10 MG TABLET (FP) PO SCH (22:44)
[2017-08-24] MEDS: LIDOCAINE PATCH REMOVAL MC SCH (22:47)
[2017-08-25] MEDS: morphine SULFATE 4 MG/ML VIAL IVPB PRN ×4 (05:51→23:03)
[2017-08-25] MEDS: CYCLOBENZAPRINE HCL 10 MG TABLET (FP) PO SCH ×3 (05:51→22:01)
[2017-08-25] MEDS: LEVOTHYROXINE NA 150 MCG TABLET PO SCH (06:00)
[2017-08-25 07:49] LABS: BASO % 0.6 % (0-2.0); HEMATOCRIT 39.9 % (35.4-49); HEMOGLOBIN 13.9 GM/dL (11.7-16.9); LYMPH % 23.8 % (8-40); MCH 32.4 pg (25.7-33.7); MCHC 34.9 g/dl (32.0-35.9); MEAN CELL VOLUME 92.7 fl (80-96); MEAN PLT VOLUME 7.9 fl (7.5-11.1); MONO % 7.3 % (3.8-10.2); NEUT % 66.3 % (42.8-82.8); PLATELET COUNT 171 K/MM3 (134-434); RBC 4.31 M/mm3 (4.00-5.60); RDW 13.9 % (11.9-15.9); WHITE BLOOD COUNT 4.4 K/mm3 (4.0-10.0)
[2017-08-25] MEDS: ACETAMINOPHEN WITH CODEINE 300MG/30MG TABLET PO PRN ×2 (12:51→19:26)
--- NOTE | 2017-08-25 13:32 | PN ---
Progress Note, Physician Chief Complaint: Still c/o Rt shoulder pain now more localized to supraspinous , pectoral area and trapezium area - Current Medication List Current Medications: Active Medications Acetaminophen/Codeine Phosphate (Tylenol # 3 -) 2 tab PO Q4H PRN PRN Reason: PAIN Last Admin: 08/25/17 12:51 Dose: 2 tab Cyclobenzaprine HCl (Flexeril -) 5 mg PO TID [facility] Last Admin: 08/25/17 05:51 Dose: 5 mg Ibuprofen (Motrin -) 600 mg PO Q8H PRN PRN Reason: PAIN Last Admin: 08/24/17 11:32 Dose: 600 mg Levothyroxine Sodium (Synthroid -) 150 mcg PO DAILY@0700 [facility] Last Admin: 08/25/17 06:00 Dose: 150 mcg Miscellaneous (Lidoderm Patch Removal) 1 each MC DAILY@2200 [facility] Last Admin: 08/24/17 22:47 Dose: 1 each Morphine Sulfate (Morphine Sulfate) 2 mg IVPB Q6H PRN PRN Reason: PAIN SCALE 6-10 Last Admin: 08/25/17 11:32 Dose: 2 mg Ondansetron HCl (Zofran Injection) 4 mg IVPUSH Q6H PRN PRN Reason: NAUSEA Ranitidine HCl (Zantac -) 150 mg PO DAILY [facility] - Objective Vital Signs: Vital Signs Temperature 97.3 F L 08/25/17 06:10 Pulse Rate 65 08/25/17 06:10 Respiratory Rate 20 08/25/17 06:10 Blood Pressure 121/77 08/25/17 06:10 O2 Sat by Pulse Oximetry (%) 95 08/25/17 05:00 C/O Rt shoulder pain and restriction of movements HENT: Mm Moist no anemia Neck: Stiff ness restricted movements Cardiovascular: Regular Rate and Rhythm, JVD, S1, S2, S3. No: Gallop, Murmur Respiratory: Yes: CTA Bilaterally, Other (Chest wall Tenderness on Rt Pectoral are and posteriorly). No: Tachypnea, Wheezes Gastrointestinal: Yes: Normal Bowel Sounds Extremities: Rt UE swelling pain and tenderness around shoulder, pectoral area and trapezium restricted movement BACK UP WORKER: AO# non f Focal Labs: CBC, BMP 08/25/17 06:00 Problem List - Problems (1) Intractable pain Assessment/Plan: Chest wall pain reproducible most likely muscle spasm or mastitis R/O Shoulder pathology [id number] mg TID, Morhine 2 mg Q 8Hrly, Flexeril, Orthopaedics consultation appreciated F/U ESR CRP and Uric acid, Rt arm sling and RT UE Doppler to R/O DVT Code(s): R52 - PAIN, UNSPECIFIED (2) Hypothyroid Assessment/Plan: Cont Levothyroxine F/U TSH Code(s): E03.9 - HYPOTHYROIDISM, UNSPECIFIED
[2017-08-25 14:43] LABS: BLOOD UREA NITROGEN 18 mg/dL (7-18); CHLORIDE 110 mmol/L (98-107); GLUCOSE,RANDOM 96 mg/dL (74-106); POTASSIUM 3.9 mmol/L (3.5-5.1); SODIUM 143 mmol/L (136-145)
[2017-08-25 14:44] LABS: ANION GAP 6 (8-16); CALCIUM 8.4 mg/dL (8.5-10.1); CO2 27 mmol/L (21-32)
[2017-08-25 15:06] LABS: URIC ACID 6.8 mg/dL (2.6-7.2)
[2017-08-25 16:02] LABS: ERYTHROCYTE SEDIMENTATION RATE 10 mm/hr (0-10)
[2017-08-25] MEDS: IBUPROFEN 600 MG TABLET (FP) PO PRN (16:47)
[2017-08-25] MEDS: RANITIDINE HCL 150 MG TABLET (FP) PO SCH (18:10)
--- NOTE | 2017-08-25 21:45 | EKG ---
Test Reason : Blood Pressure : / mmHG Vent. Rate : 066 BPM Atrial Rate : 066 BPM P-R Int : 168 ms QRS Dur : 088 ms QT Int : 390 ms P-R-T Axes : 030 009 027 degrees QTc Int : 408 ms NORMAL SINUS RHYTHM NORMAL ECG WHEN COMPARED WITH ECG OF 23-AUG-2017 19:30, NO SIGNIFICANT CHANGE WAS FOUND Confirmed by HUDSON KHOURY MD ([id number]) on 08/25/2017 9:45:17 PM Referred By: Confirmed By:HUDSON KHOURY MD
--- NOTE | 2017-08-25 21:47 | EKG ---
Test Reason : Blood Pressure : / mmHG Vent. Rate : 087 BPM Atrial Rate : 087 BPM P-R Int : 156 ms QRS Dur : 076 ms QT Int : 342 ms P-R-T Axes : 032 -01 026 degrees QTc Int : 411 ms NORMAL SINUS RHYTHM NORMAL ECG WHEN COMPARED WITH ECG OF 01-JUL-2016 17:27, CRITERIA FOR SEPTAL INFARCT ARE NO LONGER PRESENT Confirmed by HUDSON KHOURY MD ([id number]) on 08/25/2017 9:46:48 PM Referred By: Confirmed By:HUDSON KHOURY MD
[2017-08-25] MEDS: LIDOCAINE PATCH REMOVAL MC SCH (22:05)
[2017-08-26] MEDS: morphine SULFATE 4 MG/ML VIAL IVPB PRN (05:20)
[2017-08-26] MEDS: CYCLOBENZAPRINE HCL 10 MG TABLET (FP) PO SCH (05:21)
[2017-08-26] MEDS: LEVOTHYROXINE NA 150 MCG TABLET PO SCH (06:32)
[2017-08-26 07:57] LABS: BASO % 0.5 % (0-2.0); EOS % 2.6 % (0-4.5); HEMOGLOBIN 13.5 GM/dL (11.7-16.9); LYMPH % 25.5 % (8-40); MCH 32.2 pg (25.7-33.7); MCHC 34.7 g/dl (32.0-35.9); MEAN CELL VOLUME 92.7 fl (80-96); MEAN PLT VOLUME 7.9 fl (7.5-11.1); MONO % 8.3 % (3.8-10.2); NEUT % 63.1 % (42.8-82.8); PLATELET COUNT 163 K/MM3 (134-434); RBC 4.21 M/mm3 (4.00-5.60); RDW 13.8 % (11.9-15.9); WHITE BLOOD COUNT 4.1 K/mm3 (4.0-10.0)
[2017-08-26 08:14] LABS: ALBUMIN 3.1 g/dl (3.4-5.0); ANION GAP 5 (8-16); BILIRUBIN,TOTAL 0.4 mg/dL (0.2-1.0); BLOOD UREA NITROGEN 15 mg/dL (7-18); CHLORIDE 109 mmol/L (98-107); CO2 27 mmol/L (21-32); CREATININE 0.9 mg/dL (0.7-1.3); GLUCOSE,RANDOM 101 mg/dL (74-106); POTASSIUM 4.2 mmol/L (3.5-5.1); SGOT/AST 27 U/L (15-37); SGPT/ALT 52 U/L (12-78); SODIUM 141 mmol/L (136-145); TOT PROT 5.9 g/dl (6.4-8.2)
[2017-08-26 08:15] LABS: ALK PHOS 61 U/L (45-117)
[2017-08-26] MEDS: RANITIDINE HCL 150 MG TABLET (FP) PO SCH (09:09)
--- NOTE | 2017-08-26 09:49 | PN ---
Progress Note (short form) - Note Progress Note: Ortho Pt seen and examined. feeling better- no specific shoulder pain. States pain is in neck, chest and radiating to right hand. + numbness and tingling into right hand PE- decr pain, incr rom nvi US - neg for dvt a/p EMGs scheduled for today ok to d/c after emgs Pt will follow-up with in neurosurgeon upon d/c d/w Dr. Silvestre
[2017-08-26] MEDS ORDERED: PT OWN MED DRAWER 7, Y5N ONE (09:53)
[2017-08-26 10:35] VITALS: BP 124/77; PULSE 69; TEMP 97.8
--- NOTE | 2017-08-26 11:36 | CONS ---
DATE OF CONSULTATION: HISTORY OF PRESENT ILLNESS: The patient is a 46-year-old man with past medical history of chronic neck and back pain, hypothyroidism who was admitted with right chest pain, right shoulder pain as well as numbness, which goes into his right hand 3rd long finger. The patient had a recent MRI, which was reviewed from August 04, 2017, which showed small C5-C6 and C6-C7 central disks but notes that he developed abrupt onset of increased pain. He points to the chest, the right shoulder, and the proximal right upper extremity. He also has numbness down the right arm. The patient was evaluated by Orthopaedics and referred for electrodiagnostic studies of the upper extremities. The patient's main pain is up in his shoulder girdle, and he has no pain with neck movement at this point. CBC has been normal throughout his hospitalization. WBC 4.1, hemoglobin 13.5, platelet count 163 on today's blood work and stable. His chemistries showed a low albumin of 3.1, elevated TSH on multiple occasions. The first was 6.21 on August 23 and follow up was 19.70. Calcium level low at 8 but corrects for low albumin. He has a slightly elevated chloride of 109 but normal BUN 15 and creatinine 0.8. The patient was placed on pain medications including Lidoderm patch, Flexeril, Zantac, Motrin, Tylenol No. 3, and morphine IV. He is on Synthroid. PAST MEDICAL HISTORY: As above. PAST SURGICAL HISTORY: As above. SOCIAL HISTORY: The patient works multiple jobs. Independent. Ambulatory without assistive device. REVIEW OF SYSTEMS: No headache. No lightheadedness or dizziness. No blurry vision or double vision. Mild right-sided neck discomfort with no difficulty moving his neck. No difficulty moving his left shoulder. He gets numbness at night in the right upper extremity. None in the left upper extremity. He did get some numbness in his lower extremities from previous disk herniations but none currently. He has no problem with strength in the lower extremities but does have a problem with his right shoulder due to pain. No skin rash. No bowel or bladder incontinence. PHYSICAL EXAMINATION: General: The patient is a tall, muscular man seen both sitting, standing, ambulating. HEENT: Normocephalic and atraumatic. Extraocular muscles appear are intact. Neck: Supple without any palpable spasm. Mild tenderness in the right upper trapezius but full cervical range of motion. Extremities: He has no wrist deformity. No atrophy in the upper or lower extremities. No pitting edema in the lower extremities. No calf tenderness. Skin: No skin rash in the shoulder girdle, upper and lower extremities, or on his torso. Neuromuscular: He is awake, alert, and oriented x3. Cranial nerves 2-12 are grossly intact. Except for his right shoulder and bilateral thenar muscles, he has good muscle bulk and normal strength, but the right shoulder is difficult to fully assess due to pain. Even passively he has pain with movement, but he is able to hold the shoulder up. Negative drop arm. He has right thenar weakness 3+/5 and left thenar 4/5. The patient has normal sensation to pinprick and symmetric reflexes in the upper and lower extremities. Good steady balance and gait. Good motor power in the lower extremities. Overall, results of EMG nerve conduction studies, please refer to report for details. IMPRESSION: 1. Right moderate carpal tunnel syndrome. 2. Left [id number] carpal tunnel syndrome. 3. No electrodiagnostic evidence of cervical radiculopathy, polyneuropathy, brachial plexopathy, axillary neuropathy, ulnar neuropathy, polyneuropathy. 4. Right shoulder pain, possible shoulder bursitis. 5. Underlying disk herniations, which are small in the cervical spine. 6. History of lumbar disk herniations. 7. Hypothyroidism. PLAN/SUGGEST: 1. Medical follow up regarding hypothyroidism. 2. Recommend right and probably a left cock-up splint to be worn at night in neutral position. 3. Consider right shoulder cortisone injection. 4. Consider right wrist cortisone injection. 5. Pain management. Would consider changing to all oral medication. I have given him my card and can follow up as an outpatient. Thank you for this referral. EDUARDO ESQUEDA M.D. [id number]
== END 2017-08-26 12:18 | disposition home or self-care (01) ==
LOC: JERFT 18:12 → JERBED 08-24 00:55 → J7W 08-24 10:01
PROVIDERS: ADMIT Family Medicine; ATTEND Family Medicine
PROC: 3E0333Z Introduction of Anti-inflammatory into Peripheral Vein, Percutaneous Approach (ICD-10-PCS; principal; 2017-08-24)
PROC: 3E033NZ Introduction of Analgesics, Hypnotics, Sedatives into Peripheral Vein, Percutaneous Approach (ICD-10-PCS; 2017-08-24)
PROC: 3E0337Z Introduction of Electrolytic and Water Balance Substance into Peripheral Vein, Percutaneous Approach (ICD-10-PCS; 2017-08-24)
DX: S29.012A Strain of muscle and tendon of back wall of thorax, initial encounter (principal); X58.XXXA Exposure to other specified factors, initial encounter; Y93.9 Activity, unspecified; Y92.9 Unspecified place or not applicable; M62.830 Muscle spasm of back; E03.9 Hypothyroidism, unspecified; G89.29 Other chronic pain; G56.03 Carpal tunnel syndrome, bilateral upper limbs; M25.511 Pain in right shoulder; M50.20 Other cervical disc displacement, unspecified cervical region; M54.9 Dorsalgia, unspecified; R20.2 Paresthesia of skin
CPT/HCPCS: 36415; 71045-TC-FY; 80048; 80053; 84443; 84550; 85025; 85651; 86140; 93005; 93010; 93971; 95860-TC; 99284-25; G0378; J7030

== ENCOUNTER 2018-01-04 20:20 | Inpatient (IN) | payer OTHER ==
[2018-01-04] MEDS ORDERED: SODIUM CHLORIDE 1,000 ML IV STA (20:54)
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
[2018-01-04] MEDS ORDERED: FAMOTIDINE 20 MG/50 ML IVPB 20 MG/50 ML MG IVPB ONE ×2 (21:15→21:25)
[2018-01-04] MEDS ORDERED: ACETAMINOPHEN INJECTION 100 ML IVPB ONE (21:38)
[2018-01-04] MEDS ORDERED: ACETAMINOPHEN 1000 MG/100 ML VIAL (NON FORMULARY) IVPB ONE (21:38)
[2018-01-04 21:48] LABS: URINE APPEARANCE CLEAR; URINE BILIRUBIN NEGATIVE (<2.0 mg/dL); URINE COLOR YELLOW; URINE GLUCOSE (UA) NEGATIVE (NEGATIVE); URINE KETONE NEGATIVE (NEGATIVE); URINE LEUK ESTERASE NEGATIVE (NEGATIVE); URINE NITRITE NEGATIVE (NEGATIVE); URINE PROTEIN NEGATIVE (NEGATIVE); URINE UROBILINOGEN NEGATIVE mg/dL (0.2-1.0)
[2018-01-04 21:49] LABS: BASO % 0.6 % (0-2.0); EOS % 2.5 % (0-4.5); HEMATOCRIT 41.4 % (35.4-49); HEMOGLOBIN 14.5 GM/dL (11.7-16.9); LYMPH % 25.3 % (8-40); MCHC 34.9 g/dl (32.0-35.9); MEAN CELL VOLUME 91.7 fl (80-96); MEAN PLT VOLUME 8.1 fl (7.5-11.1); MONO % 9.2 % (3.8-10.2); NEUT % 62.4 % (42.8-82.8); PLATELET COUNT 168 K/MM3 (134-434); RBC 4.51 M/mm3 (4.00-5.60); RDW 13.1 % (11.9-15.9)
[2018-01-04 22:14] LABS: ALBUMIN 3.5 g/dl (3.4-5.0); ALK PHOS 88 U/L (45-117); ANION GAP 9 (8-16); BILIRUBIN,TOTAL 0.3 mg/dL (0.2-1.0); BLOOD UREA NITROGEN 18 mg/dL (7-18); CALCIUM 8.4 mg/dL (8.5-10.1); CHLORIDE 110 mmol/L (98-107); CO2 27 mmol/L (21-32); CREATININE 1.2 mg/dL (0.7-1.3); GLUCOSE,RANDOM 149 mg/dL (74-106); LIPASE 172 U/L (73-393); POTASSIUM 3.7 mmol/L (3.5-5.1); SGOT/AST 21 U/L (15-37); SGPT/ALT 53 U/L (12-78); SODIUM 146 mmol/L (136-145); TOT PROT 6.5 g/dl (6.4-8.2)
[2018-01-04 22:15] LABS: MAGNESIUM 1.9 mg/dL (1.8-2.4)
[2018-01-05 00:48] LABS: INR 0.97 (0.83-1.09)
[2018-01-05 02:33] VITALS: BMI 31.1
[2018-01-05] MEDS ORDERED: ONDANSETRON 4 MG/2 ML VIAL IVPUSH PRN (02:49)
[2018-01-05] MEDS ORDERED: HYDROmorphone HCL CARPU-JECT 1 MG/1 ML DISP.SYRIN IVPB PRN (02:49)
[2018-01-05] MEDS: D5-1/2NS+10 MEQ KCL - 10 MEQ/1,000 ML INFUS.BAG IV SCH ×2 (03:09→13:47)
[2018-01-05] MEDS: morphine SULFATE 4 MG/ML VIAL IVPUSH PRN ×4 (03:10→20:55)
[2018-01-05] MEDS ORDERED: MORPHINE SULFATE 2 MG/ML VIAL IVPUSH ONE (07:00)
[2018-01-05 07:50] LABS: BASO % 0.8 % (0-2.0); EOS % 2.4 % (0-4.5); HEMATOCRIT 40.7 % (35.4-49); HEMOGLOBIN 14.1 GM/dL (11.7-16.9); MCH 32.2 pg (25.7-33.7); MCHC 34.6 g/dl (32.0-35.9); MEAN CELL VOLUME 93.1 fl (80-96); MEAN PLT VOLUME 8.1 fl (7.5-11.1); MONO % 8.5 % (3.8-10.2); NEUT % 58.3 % (42.8-82.8); PLATELET COUNT 142 K/MM3 (134-434); RBC 4.37 M/mm3 (4.00-5.60); RDW 13.6 % (11.9-15.9); WHITE BLOOD COUNT 4.2 K/mm3 (4.0-10.0)
[2018-01-05 08:12] LABS: CHLORIDE 108 mmol/L (98-107); POTASSIUM 4.1 mmol/L (3.5-5.1); SODIUM 143 mmol/L (136-145)
[2018-01-05 08:28] LABS: ALBUMIN 3.3 g/dl (3.4-5.0); ALK PHOS 66 U/L (45-117); ANION GAP 6 (8-16); BILIRUBIN,TOTAL 0.6 mg/dL (0.2-1.0); BLOOD UREA NITROGEN 14 mg/dL (7-18); CALCIUM 8.2 mg/dL (8.5-10.1); CO2 29 mmol/L (21-32); GLUCOSE,RANDOM 94 mg/dL (74-106); SGOT/AST 45 U/L (15-37); SGPT/ALT 62 U/L (12-78); TOT PROT 6.2 g/dl (6.4-8.2)
[2018-01-05] MEDS: FAMOTIDINE 20 MG/50 ML IVPB 20 MG/50 ML MG IVPB SCH ×2 (09:00→23:12)
--- NOTE | 2018-01-05 11:46 | HP ---
Admitting History and Physical - Primary Care Physician PCP: Saeid Ashley - Admission Chief Complaint: abd pain - Past Medical History Endocrine: Yes: Hypothyroidism - Smoking History Smoking history: Never smoked Have you smoked in the past 12 months: No Aproximately how many cigarettes per day: 0 - Alcohol/Substance Use Hx Alcohol Use: Yes (SOCIAL) Home Medications - Allergies Allergies/Adverse Reactions: Allergies Allergy/AdvReac Type Severity Reaction Status Date / Time No Known Allergies Allergy Verified 01/05/18 00:13 - Home Medications Home Medications: Ambulatory Orders Levothyroxine Sodium [Levo-T] 150 mcg PO DAILY 07/01/16 Family Disease History - Family Disease History Family History: Unremarkable Physical Examination Vital Signs: Vital Signs Temperature 97.8 F 01/05/18 09:08 Pulse Rate 58 L 01/05/18 09:08 Respiratory Rate 20 01/05/18 09:08 Blood Pressure 127/78 01/05/18 09:08 O2 Sat by Pulse Oximetry (%) 99 01/05/18 02:40 Constitutional: Yes: Well Nourished, No Distress, Calm Eyes: Yes: WNL, Conjunctiva Clear, EOM Intact Neck: Yes: WNL, Supple Respiratory: Yes: WNL, Regular, CTA Bilaterally Gastrointestinal: Yes: Normal Bowel Sounds, Soft ...Rectal Exam: Yes: Deferred Musculoskeletal: No: Back Pain, Joint Stiffness Extremities: No: Amputation, Calf Tenderness Edema: No Peripheral Pulses: Left Doralis Pedis: 1+, Right Dorsalis Pedis: 1+ Neurological: Yes: WNL, Alert, Oriented ...Motor Strength: WNL, LLE, RUE Labs: CBC, BMP 01/05/18 06:54 01/05/18 06:54 Imaging - Results Ultrasound: Report Reviewed (distended gall bladder with large non mobile stone) Other: Report Reviewed Problem List - Problems (1) Cholecystitis with cholelithiasis Assessment/Plan: npo pain control, iv hydration, surgery consult Code(s): K80.10 - CALCULUS OF GALLBLADDER W CHRONIC CHOLECYST W/O OBSTRUCTION (2) Hypothyroid Assessment/Plan: cont levothyroxine Code(s): E03.9 - HYPOTHYROIDISM, UNSPECIFIED
--- NOTE | 2018-01-05 18:23 | CONSULT ---
Consult Consult Specialty:: Surgery Reason for Consultation:: Acute Cholecystitis - History of Present Illness Chief Complaint: abdominal pain History of Present Illness: 47-year-old male without significant past medical history who presents emergency Department with epigastric pain radiating to his right upper quadrants which woke him from sleep. 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 Approximately 4:00 this afternoon patient woke up with severe pain which she describes as a pressure. Patient pointed to his right upper quadrant and slipped his finger along the base of the ribs to his epigastrium when asked where the pain is. Patient denies any nausea, vomiting, diarrhea. Patient does report feeling short of breath when taking a large breath. He denies any fevers, chills, cough. - History Source History Provided By: Patient Limitations to Obtaining History: No Limitations - Past Medical History Endocrine: Yes: Hypothyroidism - Alcohol/Substance Use Hx Alcohol Use: Yes (SOCIAL) - Smoking History Smoking history: Never smoked Have you smoked in the past 12 months: No Aproximately how many cigarettes per day: 0 Home Medications - Allergies Allergies/Adverse Reactions: Allergies Allergy/AdvReac Type Severity Reaction Status Date / Time No Known Allergies Allergy Verified 01/05/18 00:13 - Home Medications Home Medications: Ambulatory Orders Levothyroxine Sodium [Levo-T] 150 mcg PO DAILY 07/01/16 Review of Systems - Review of Systems Constitutional: reports: No Symptoms Eyes: reports: No Symptoms HENT: reports: No Symptoms Neck: reports: No Symptoms Cardiovascular: reports: No Symptoms Respiratory: reports: No Symptoms Gastrointestinal: reports: Abdominal Pain (RUQ and Epigastric region) Physical Exam Vital Signs: Vital Signs Temperature 98.0 F 01/05/18 14:55 Pulse Rate 58 L 01/05/18 14:55 Respiratory Rate 20 01/05/18 14:55 Blood Pressure 111/71 01/05/18 14:55 O2 Sat by Pulse Oximetry (%) 99 01/05/18 09:00 Constitutional: Yes: Well Nourished Eyes: Yes: Conjunctiva Clear HENT: Yes: Normocephalic Neck: Yes: Supple, Tenderness Respiratory: Yes: Regular, CTA Bilaterally Gastrointestinal: Yes: Abdomen, Obese, Tenderness (RUQ with Bergman's sign), Tenderness, Epigastrium ...Rectal Exam: Yes: Deferred Edema: No Integumentary: Yes: WNL Neurological: Yes: Alert, Oriented Labs: CBC, BMP 01/05/18 06:54 01/05/18 06:54 Imaging - Results Ultrasound: Report Reviewed, Image Reviewed Problem List - Problems (1) Cholecystitis with cholelithiasis Assessment/Plan: Laparoscopic cholecystectomy in am. IV abx GI and DVT prophylaxis Code(s): K80.10 - CALCULUS OF GALLBLADDER W CHRONIC CHOLECYST W/O OBSTRUCTION
--- NOTE | 2018-01-05 19:58 | EKG ---
Test Reason : Blood Pressure : / mmHG Vent. Rate : 061 BPM Atrial Rate : 061 BPM P-R Int : 176 ms QRS Dur : 080 ms QT Int : 402 ms P-R-T Axes : 060 -01 035 degrees QTc Int : 404 ms NORMAL SINUS RHYTHM NORMAL ECG WHEN COMPARED WITH ECG OF 23-AUG-2017 23:29, NO SIGNIFICANT CHANGE WAS FOUND Confirmed by CATARINA TEJEDA MD ([id number]) on 01/05/2018 7:57:48 PM Referred By: Confirmed By:CATARINA TEJEDA MD
[2018-01-05] MEDS: AMPICILLIN NA/SULBACTAM NA 1.5 GM in SODIUM CHLORIDE 100 ML IVPB SCH (20:53)
[2018-01-06] MEDS: D5-1/2NS+10 MEQ KCL - 10 MEQ/1,000 ML INFUS.BAG IV SCH ×3 (00:21→11:21)
[2018-01-06] MEDS: AMPICILLIN NA/SULBACTAM NA 1.5 GM in SODIUM CHLORIDE 100 ML IVPB SCH ×4 (03:36→20:41)
[2018-01-06] MEDS: morphine SULFATE 4 MG/ML VIAL IVPUSH PRN (05:22)
[2018-01-06 07:27] LABS: BASO % 0.7 % (0-2.0); EOS % 2.4 % (0-4.5); HEMATOCRIT 44.9 % (35.4-49); HEMOGLOBIN 15.6 GM/dL (11.7-16.9); LYMPH % 34.6 % (8-40); MCH 32.4 pg (25.7-33.7); MCHC 34.8 g/dl (32.0-35.9); MEAN CELL VOLUME 92.9 fl (80-96); MEAN PLT VOLUME 8.4 fl (7.5-11.1); MONO % 8.2 % (3.8-10.2); NEUT % 54.1 % (42.8-82.8); PLATELET COUNT 169 K/MM3 (134-434); RBC 4.83 M/mm3 (4.00-5.60); RDW 13.6 % (11.9-15.9)
[2018-01-06] MEDS ORDERED: BUPIVACAINE HCL/PF 0.5% (5MG/ML) 10 ML VIAL ONE (08:16)
[2018-01-06 08:23] LABS: ALBUMIN 3.9 g/dl (3.4-5.0); ANION GAP 7 (8-16); BLOOD UREA NITROGEN 11 mg/dL (7-18); CALCIUM 8.3 mg/dL (8.5-10.1); CHLORIDE 102 mmol/L (98-107); CO2 29 mmol/L (21-32); GLUCOSE,RANDOM 98 mg/dL (74-106); POTASSIUM 3.6 mmol/L (3.5-5.1); SODIUM 138 mmol/L (136-145)
[2018-01-06] MEDS ORDERED: AMPICILLIN NA/SULBACTAM NA 1.5 GM VIAL ONE ×3 (08:37→19:54)
[2018-01-06] MEDS ORDERED: MIDAZOLAM HCL 2 MG/2 ML SINGLE DOSE VIAL ONE (08:44)
[2018-01-06 08:47] LABS: ALK PHOS 129 U/L (45-117); BILIRUBIN,TOTAL 3.3 mg/dL (0.2-1.0); CREATININE 1.2 mg/dL (0.7-1.3); SGOT/AST 991 U/L (15-37); TOT PROT 7.5 g/dl (6.4-8.2)
[2018-01-06] MEDS ORDERED: ROCURONIUM BROMIDE 50 MG/5 ML VIAL ONE ×2 (08:49→08:50)
[2018-01-06] MEDS ORDERED: PROPOFOL 20 ML ONE ×2 (08:50)
[2018-01-06 08:52] LABS: SGPT/ALT 1034 U/L (12-78)
[2018-01-06] MEDS ORDERED: AMPICILLIN NA/SULBACTAM NA 1.5 GM VIAL IVPB ONE (08:53)
[2018-01-06] MEDS ORDERED: AMPICILLIN NA/SULBACTAM NA 1.5 GM in SODIUM CHLORIDE 100 ML IVPB SCH (08:56)
[2018-01-06] MEDS ORDERED: BUPIVACAINE HCL/PF (5 MG/ML) 30 ML VIAL IJ ONE ×2 (09:08)
[2018-01-06] MEDS ORDERED: GLYCOPYRROLATE 0.2 MG/1 ML VIAL ONE (09:51)
[2018-01-06] MEDS ORDERED: NEOSTIGMINE METHYLSULFATE 0.5 MG/ML - 10 ML MDV ONE (09:51)
[2018-01-06] MEDS ORDERED: DEXAMETHASONE SOD PHOSPHATE 4 MG/1 ML VIAL ONE (09:51)
[2018-01-06] MEDS ORDERED: KETOROLAC TROMETHAMINE 30 MG/1 ML VIAL ONE (09:51)
[2018-01-06] MEDS ORDERED: LIDOCAINE HCL/PF 2% SDV 5ML VIAL ONE (09:51)
[2018-01-06] MEDS ORDERED: LIDOCAINE HCL 2% JELLY (5 ML/TUBE) ONE (09:51)
--- NOTE | 2018-01-06 10:10 | OP ---
Operative Note - Note: Operative Date: 01/06/18 Pre-Operative Diagnosis: Acute cholecystitis Operation: Laparoscopic cholecystectomy Findings: distended, edematous gallbladder with impacted stone in the neck Post-Operative Diagnosis: Same as Pre-op Surgeon: Moises Ortiz Reproductive Healthcare Assistant: Everett Cerna Anesthesia: General Specimens Removed: gallbladder Estimated Blood Loss (mls): 20 Operative Report Dictated: Yes
--- NOTE | 2018-01-06 10:19 | SURG ---
Surgery Nutrition And Dietetics Instructor Note Nutrition And Dietetics Instructor: Everett Cerna PA-C Date of Service: 01/06/18 Diagnosis: Acute cholecystitis Procedure: laproscopic cholecystectomy I was present for the entirety of the operative procedure. For further detail, please refer to operative report.
[2018-01-06] MEDS ORDERED: ONDANSETRON 4 MG/2 ML VIAL IVPUSH PRN ×2 (10:26→10:47)
[2018-01-06] MEDS ORDERED: LACTATED RINGERS SOLUTION 1,000 ML IV SCH (10:30)
[2018-01-06] MEDS ORDERED: FAMOTIDINE 20 MG/50 ML IVPB 20 MG/50 ML MG IVPB ONE (10:39)
[2018-01-06] MEDS: FAMOTIDINE 20 MG/50 ML IVPB 20 MG/50 ML MG IVPB SCH ×2 (10:46→21:43)
[2018-01-06] MEDS ORDERED: PT OWN MED DRAWER 7, Y5N ONE ×2 (14:09→20:41)
[2018-01-06] MEDS: oxyCODONE HCL 5 MG TABLET PO PRN ×2 (14:25→20:38)
[2018-01-06] MEDS: ACETAMINOPHEN 325 MG TABLET (FP) PO PRN ×2 (14:26→20:39)
[2018-01-06] MEDS ORDERED: ACETAMINOPHEN 325 MG TABLET (FP) PO ONE (18:00)
[2018-01-06] MEDS ORDERED: oxyCODONE HCL 5 MG TABLET PO ONE (18:00)
--- NOTE | 2018-01-06 19:50 | PN ---
Progress Note, Physician Chief Complaint: C/O abdominal pain ,S/P lap elaina History of Present Illness: S/P lap cholecystectomy - Current Medication List Current Medications: Active Medications Acetaminophen (Tylenol -) 325 mg PO Q4H PRN PRN Reason: PAIN LEVEL 6-10 Stop: 01/09/18 10:30 Last Admin: 01/06/18 14:26 Dose: 325 mg Fentanyl (Sublimaze Injection -) 50 mcg IVPUSH [id number] PRN PRN Reason: PAIN-PACU ORDER X 4 DOSES ONLY Last Admin: 01/06/18 10:40 Dose: 50 mcg Ampicillin Sodium/Sulbactam (Sodium 1.5 gm/ Sodium Chloride) 100 mls @ 200 mls/ hr IVPB Q6H-IV LEORA Last Admin: 01/06/18 14:26 Dose: 200 mls/hr Potassium Chloride/Dextrose/Sod Cl (D5-1/2ns+10 Meq Kcl -) 10 meq in 1,000 mls @ 100 mls/hr IV ASDIR LEORA Last Admin: 01/06/18 11:21 Dose: 100 mls/hr Famotidine/Sodium Chloride (Pepcid 20 Mg Premixed Ivpb -) 20 mg in 50 mls @ 100 mls/hr IVPB BID LEORA Ondansetron HCl (Zofran Injection) 4 mg IVPUSH Q6H PRN PRN Reason: NAUSEA AND/OR VOMITING Ondansetron HCl (Zofran Injection) 4 mg IVPUSH Q6H PRN PRN Reason: NAUSEA Oxycodone HCl (Roxicodone -) 5 mg PO Q4H PRN PRN Reason: PAIN LEVEL 6-10 Last Admin: 01/06/18 14:25 Dose: 5 mg - Objective Vital Signs: Vital Signs Temperature 98.5 F 01/06/18 18:33 Pulse Rate 57 L 01/06/18 18:33 Respiratory Rate 20 01/06/18 18:33 Blood Pressure 122/72 01/06/18 18:33 O2 Sat by Pulse Oximetry (%) 98 01/06/18 12:02 Eyes: Yes: WNL HENT: Yes: WNL Neck: Yes: WNL Cardiovascular: Yes: WNL Respiratory: Yes: WNL Gastrointestinal: Yes: Hypoactive Bowel Sounds ...Rectal Exam: Yes: Deferred Genitourinary: Yes: WNL Musculoskeletal: Yes: WNL Edema: No Peripheral Pulses WNL: Yes Integumentary: Yes: WNL Neurological: Yes: Alert Labs: CBC, BMP 01/06/18 06:00 01/06/18 06:00 INR, PTT INR 0.97 (0.83-1.09) 01/05/18 00:19 Assessment/Plan pot op care as ordered
[2018-01-06] MEDS ORDERED: SODIUM CHLORIDE 100 ML IVPB ONE (19:54)
--- NOTE | 2018-01-06 20:09 | PN ---
Progress Note (short form) - Note Progress Note: S/P laparoscopic cholecystectomy today Tolerated clear liquids Post-op pain tolerable Wounds dry and intact A/P: Doing well Advance to regular diet in am May D/C home anytime if patient tolerates regular diet. F/U at the office in one week. Problem List - Problems (1) Cholecystitis with cholelithiasis Code(s): K80.10 - CALCULUS OF GALLBLADDER W CHRONIC CHOLECYST W/O OBSTRUCTION
--- NOTE | 2018-01-06 20:27 | OP ---
DATE OF OPERATION: 01/06/2018 PROCEDURE: Laparoscopic cholecystectomy. PREOPERATIVE DIAGNOSIS: Acute cholecystitis. POSTOPERATIVE DIAGNOSIS: Acute cholecystitis. SURGEON: Moises Ortiz MD QUALITY TECH: Everett Cerna PA-C ANESTHESIA: General endotracheal. FINDINGS AND PROCEDURE: This is a 47-year-old male who presents with 2 days history of sudden onset of epigastric and right upper quadrant pain, slightly radiating to the back after a fatty meal. So, patient was evaluated in the emergency department and was ruled out for acute coronary syndrome, and an ultrasound revealed a distended gallbladder with 1.9-cm stone impacted in the gallbladder neck. On physical exam, patient has right upper quadrant and epigastric tenderness and a positive Bergman sign. So, patient was admitted for intravenous antibiotics, pain management, and surgical intervention. Consent was obtained after discussing the risks, benefits , and alternatives to the procedure. Patient was brought to the operating room and placed in supine position. General endotracheal anesthesia was administered. The abdomen was prepped and draped in the usual sterile fashion. Using 0.5% Marcaine, local anesthesia was administered to the proposed incision sites. The peritoneal cavity was entered using the Optiview technique via a 5-mm umbilical incision. Using a 5-mm 30-degree scope inserted in the 5-mm optical port, pneumoperitoneum was established. Patient was then placed in reverse Trendelenburg, [id number] position. An 11-mm port was inserted at the subxiphoid region, and two 5-mm ports were inserted at the right subcostal region at the midclavicular and anterior axillary lines. The gallbladder was noted to be distended with thickened wall, and this was decompressed by aspirating 60 mL of thick, dark-green bile. Afterwards, the gallbladder fundus was grasped and retracted anterosuperiorly. The omental adhesions to the gallbladder body were taken down sharply using the hook dissector connected to monopolar cautery. The infundibulum was visualized and grasped and retracted inferolaterally to expose the triangle of Calot. The visceral peritoneum covering the triangle of Calot was scored using the hook dissector connected to monopolar cautery. A window was made between the liver, gallbladder wall and cystic artery to create the critical view of safety. The cystic duct and cystic artery were then isolated carefully using the [place] dissector combined with the hook dissector. The cystic duct and cystic artery were clipped at 3 points, followed by transection, leaving 2 clips at the cystic duct and cystic artery stumps. An extra clip was placed on the cystic duct. The gallbladder was then dissected from its bed in antegrade fashion using the hook dissector connected to monopolar cautery. After this was completed, the gallbladder was placed in an Endobag and extracted via the subxiphoid incision which was lengthened about 2.5 cm to accommodate a large gallbladder stone. The gallbladder bed, the Morison pouch, and the right hepatic gutter were irrigated with sterile normal saline until return was clear. The pneumoperitoneum was evacuated, and the ports were removed. The wounds were closed with 1 [id number] Polysorb 0 suture for the fascia of the subxiphoid incision and subcuticular Biosyn 4-0 suture for the skin. The wound closure was reinforced with Dermabond. Patient was successfully extubated and transferred to the postanesthesia care unit in satisfactory condition. Estimated blood loss was about 20 mL. Wound class: Clean/contaminated. Patient was already on Unasyn since admission. Jigna [id number] MTDD
[2018-01-07] MEDS: D5-1/2NS+10 MEQ KCL - 10 MEQ/1,000 ML INFUS.BAG IV SCH ×2 (00:06→11:37)
[2018-01-07] MEDS: oxyCODONE HCL 5 MG TABLET PO PRN ×3 (00:10→10:01)
[2018-01-07] MEDS: ACETAMINOPHEN 325 MG TABLET (FP) PO PRN ×3 (00:11→10:01)
[2018-01-07] MEDS ORDERED: AMPICILLIN NA/SULBACTAM NA 1.5 GM VIAL ONE ×3 (02:16→10:00)
[2018-01-07] MEDS ORDERED: PT OWN MED DRAWER 7, Y5N ONE (02:17)
[2018-01-07] MEDS ORDERED: SODIUM CHLORIDE 100 ML IVPB ONE ×2 (02:39→10:00)
[2018-01-07] MEDS: AMPICILLIN NA/SULBACTAM NA 1.5 GM in SODIUM CHLORIDE 100 ML IVPB SCH ×2 (02:43→10:02)
--- NOTE | 2018-01-07 08:58 | DS ---
Physical Examination Vital Signs: Vital Signs Temperature 97.9 F 01/07/18 05:52 Pulse Rate 58 L 01/07/18 05:52 Respiratory Rate 18 01/07/18 05:52 Blood Pressure 135/77 01/07/18 05:52 O2 Sat by Pulse Oximetry (%) 98 01/06/18 21:00 Findings/Remarks: Ac cholecystitis S/P cholecystectomy Constitutional: Yes: No Distress Eyes: Yes: WNL HENT: Yes: WNL Neck: Yes: WNL Cardiovascular: Yes: WNL Respiratory: Yes: WNL Gastrointestinal: Yes: Tenderness ...Rectal Exam: Yes: WNL Renal/: Yes: WNL Edema: No Wound/Incision: Yes: Clean/Dry Neurological: Yes: Alert Psychiatric: Yes: Alert Labs: CBC, BMP 01/06/18 06:00 01/06/18 06:00 Discharge Summary Reason For Visit: CHOLELITHIASIS WITH CHOLECYSTITIS Current Active Problems Cholecystitis with cholelithiasis (Acute) Condition: Fair - Instructions - Home Medications Comprehensive Discharge Medication List: Ambulatory Orders Levothyroxine Sodium [Levo-T] 150 mcg PO DAILY 07/01/16
--- NOTE | 2018-01-07 10:19 | PN ---
Progress Note (short form) - Note Progress Note: Anesthesia Post op Pt seen and examined S:alert and awake O: Vital Signs Temperature 97.9 F 01/07/18 05:52 Pulse Rate 58 L 01/07/18 05:52 Respiratory Rate 18 01/07/18 05:52 Blood Pressure 135/77 01/07/18 05:52 O2 Sat by Pulse Oximetry (%) 98 01/06/18 21:00 CBC, BMP 01/06/18 06:00 01/06/18 06:00 A/P Current Active Problems Cholecystitis with cholelithiasis (Acute) s/p lap cholecystectomy Doing well post op Continue current care Dominic Yeager MD
[2018-01-07] MEDS: FAMOTIDINE 20 MG/50 ML IVPB 20 MG/50 ML MG IVPB SCH (11:37)
[2018-01-07 13:41] VITALS: BP 125/74; PULSE 62; TEMP 98.2
[2018-01-08] MEDS ORDERED: LEVOTHYROXINE NA 150 MCG TABLET PO SCH (07:00)
--- NOTE | 2018-01-08 11:37 | PATH ---
Surgical Pathology Report Patient Name: EDISON MILAN Med. Rec. #: [id number] /Age/Gender: 1970 (Age: 47) / M Account: [id number] Location: [facility] MED/SURG Taken: 01/06/2018 Received: 01/06/2018 Reported: 01/08/2018 Physicians: Jigna Banda M.D. Specimen(s) Received GALLBLADDER Clinical History Cholelithiasis, cholecystitis Final Diagnosis GALLBLADDER, LAPAROSCOPIC CHOLECYSTECTOMY: ACUTE AND CHRONIC CHOLECYSTITIS WITH CHOLELITHIASIS. Electronically Signed Breana Stringer M.D. Gross Description Received in formalin, labeled "gallbladder," is an 8.0 x 4.2 x 2.8 cm. markedly torn and fragmented gallbladder with no definitive cystic duct margin identified due to the disrupted nature of the gallbladder. The outer surface is hernandez-pink with focal defects and varies from smooth to shaggy. The lumen contains red blood as well as a 1.5 cm greatest dimension black, irregular cholelith. The mucosa is hyperemic. The wall of the gallbladder ranges from 0.1-0.4 cm. in thickness. Top Cager sections including possible cystic duct margin are submitted in one cassette. 01/06/2018 [facility]01/06/2018
== END 2018-01-07 12:49 | disposition home or self-care (01) | DRG 263 ==
LOC: JER 20:20 → JERBED 23:40 → J7W 01-05 02:05
PROVIDERS: ADMIT Internal Medicine; ATTEND Internal Medicine
PROC: 0FT44ZZ Resection of Gallbladder, Percutaneous Endoscopic Approach (ICD-10-PCS; principal; 2018-01-06 08:30)
DX: K80.12 Calculus of gallbladder with acute and chronic cholecystitis without obstruction (principal); E03.9 Hypothyroidism, unspecified; R10.11 Right upper quadrant pain
CPT/HCPCS: 36415; 71046-TC-FY; 76705-TC; 80053; 81003; 82550; 82553; 83690; 83735; 84484; 85025; 85610; 86850; 86900; 86901; 88304-TC; 93005; 93010; 99283-25; J0131; J7030

== ENCOUNTER 2018-08-15 09:16 | Inpatient (IN) | payer OTHER ==
[2018-08-15 09:29] VITALS: BMI 34.0
[2018-08-15] MEDS ORDERED: KETOROLAC TROMETHAMINE 30 MG/1 ML VIAL IM ONE (10:37)
--- NOTE | 2018-08-15 10:44 | PDOC ---
"History of Present Illness - General Chief Complaint: Pain, Acute Stated Complaint: RT ARM PAIN Time Seen by Provider: 08/15/18 10:29 History Source: Patient, Old Records Exam Limitations: No Limitations - History of Present Illness Initial Comments: 08/15/18 10:46 CHIEF COMPLAINT: Shoulder pain HISTORY OF PRESENT ILLNESS: This is a 47-year-old male with a history of hypothyroidism and prior admission in 08/2017 for intractable neck and shoulder pain. That admission was notable for: -MRI upper extremity: acromioclavicular arthopathy, mild tenosynovitis of the biceps tendon, tear of the anterior labrum with adjacent paralabral cyst and tear of the posterior aspect of the superior labrum extending inferiorly to the level of the posterior inferior labrum with adjacent underlying subchondral cysts -Cervical spine MRI: Small central and bilateral disc herniation The patient was discharged and instructed to follow up for surgery but has not done so. He returns today with sudden, spontaneous recurrence of pain in the right shoulder and right pectoralis which renders him able to raise or abduct his arm. He describes some numbness and tingling in his fingers. He has not attempted any pain management. Past History - Past Medical History Allergies/Adverse Reactions: Allergies Allergy/AdvReac Type Severity Reaction Status Date / Time No Known Allergies Allergy Verified 08/15/18 09:24 Home Medications: Ambulatory Orders Levothyroxine Sodium [Levo-T] 150 mcg PO DAILY #30 tablet 01/07/18 Levothyroxine [Synthroid -] 150 mcg PO DAILY@0700 tablet 01/07/18 Oxycodone HCl/Acetaminophen [Percocet 5-325 mg Tablet] 1 combo PO Q4H PRN #30 tablet MDD 4 01/07/18 Anemia: No Asthma: No Cancer: No Cardiac Disorders: No CVA: No COPD: No CHF: No Dementia: No Diabetes: No GI Disorders: No Disorders: No HTN: No Hypercholesterolemia: No Liver Disease: No Seizures: No Thyroid Disease: Yes (HYPO) - Surgical History Abdominal Surgery: Yes (RT IN HERNIA) Appendectomy: No Cardiac Surgery: No Cholecystectomy: No Lung Surgery: No Neurologic Surgery: No Orthopedic Surgery: Yes (RT LEG,LT ARM FX) - Immunization History Td Vaccination: Yes TDAP Vaccination: Yes Immunization Up to Date: Yes - Suicide/Smoking/Psychosocial Hx Smoking Status: No Smoking History: Never smoked Years of Tobacco Use: 0 Have you smoked in the past 12 months: No Number of Cigarettes Smoked Daily: 0 Cigars Per Day: 0 Hx Alcohol Use: No Drug/Substance Use Hx: No Substance Use Type: None Hx Substance Use Treatment: No Review of Systems - Review of Systems Constitutional: No: Chills Respiratory: No: Cough, SOB with Exertion, SOB at Rest Cardiac (ROS): No: Irregular Heart Rate, Palpitations, Syncope, Chest Tightness Musculoskeletal: Yes: See HPI Integumentary: No: Symptoms Reported *Physical Exam - Vital Signs Last Vital Signs Temp Pulse Resp BP Pulse Ox 98.1 F 73 16 138/84 99 08/15/18 09:24 08/15/18 09:24 08/15/18 09:24 08/15/18 09:24 08/15/18 09:24 - Physical Exam General Appearance: Yes: Apparent Distress (secondary to pain) HEENT: positive: EOMI, ZOHAIB Neck: positive: Other (Midline vertebral tenderness C5/6 and C6/7) Respiratory/Chest: positive: Chest Tender (Right pectoralis) Cardiovascular: positive: Regular Rhythm, Regular Rate Gastrointestinal/Abdominal: positive: Normal Bowel Sounds, Soft. negative: Tender Musculoskeletal: positive: Other (Unable to abduct or elevate right arm. Radial and ulnar pulses 2+. Normal sensation and movement of fingers. 4/5 release engineer strength.) Integumentary: positive: Normal Color, Dry, Warm Neurologic: positive: stylist apprentice II-XII NML intact Moderate Sedation - Procedure Monitoring Vital Signs: Procedure Monitoring Vital Signs Temperature 98.1 F 08/15/18 09:24 Pulse Rate 73 08/15/18 09:24 Respiratory Rate 16 08/15/18 09:24 Blood Pressure 138/84 08/15/18 09:24 O2 Sat by Pulse Oximetry (%) 99 08/15/18 09:24 ED Treatment Course - RADIOLOGY Radiology Studies Ordered: Category Date Time Status CHEST PA & LAT [RAD] Stat Radiology 08/15/18 10:43 Ordered SHOULDER-RIGHT [RAD] Stat Radiology 08/15/18 10:37 Ordered SPINE-CERVICAL [RAD] Stat Radiology 08/15/18 10:43 Ordered Medical Decision Making - Medical Decision Making 08/15/18 10:43 A/P: 47-year-old male with right shoulder pain and limited ROM, possibly related to prior injury. 1. Toradol 30mg IM and Percocet 1 tab po for pain 2. Sling applied 3. Xray cervical spine, chest, right shoulder 4. Orthopedic evaluation Discussed with orthopedic consult who reviewed prior MRIs. Recommends stat cervical spine MRI given symptoms and prior history of disc herniation. Recommends neurosurgical evaluation. Will follow as inpatient. Discussed with PCP Dr. Ashley who recommends admission. Neurosurgery consult placed. Search Terms: Pietro Kunz, 1970 Search Date: 08/15/2018 10:42:38 AM The Drug Utilization Report below displays all of the controlled substance prescriptions, if any, that your patient has filled in the last twelve months. The information displayed on this report is compiled from pharmacy submissions to the Department, and accurately reflects the information as submitted by the pharmacies. This report was requested by: Tram Watson | Reference #: [id number] Others' Prescriptions Patient Name: Pietro Kunz Date: 1970 Address: [address] [place] [address] Sex: Male Rx Written Rx Dispensed Drug Quantity Days Supply Prescriber Name 01/07/2018 01/07/2018 oxycodone-acetaminophen 5-325 mg tab 30 7 Ranjana Ashley MD 08/15/18 11:03 08/15/18 12:35 *DC/Admit/Observation/Transfer Diagnosis at time of Disposition: Arm paresthesia, right, Cervical herniated disc Tear of right glenoid labrum Qualifiers: Encounter type: subsequent encounter Qualified Code(s): S43.431D - Superior glenoid labrum lesion of right shoulder, subsequent encounter - Discharge Dispostion Decision to Admit order: Yes - Referrals Referrals: Saeid Ashley MD [Primary Care Provider] - - Patient Instructions - Post Discharge Activity"
[2018-08-15] MEDS ORDERED: KETOROLAC TROMETHAMINE 30 MG/1 ML VIAL ONE (10:53)
[2018-08-15] MEDS ORDERED: CYCLOBENZAPRINE HCL 10 MG TABLET (FP) PO ONE (12:03)
[2018-08-15] MEDS ORDERED: CYCLOBENZAPRINE HCL 10 MG TABLET (FP) ONE (12:23)
[2018-08-15 13:34] LABS: BASO % 0.4 % (0-2.0); EOS % 0.9 % (0-4.5); HEMATOCRIT 45.6 % (35.4-49); HEMOGLOBIN 15.9 GM/dL (11.7-16.9); LYMPH % 17.4 % (8-40); MCH 33.1 pg (25.7-33.7); MCHC 34.9 g/dl (32.0-35.9); MEAN CELL VOLUME 94.8 fl (80-96); MEAN PLT VOLUME 8.6 fl (7.5-11.1); MONO % 8.1 % (3.8-10.2); NEUT % 73.2 % (42.8-82.8); PLATELET COUNT 181 K/MM3 (134-434); RBC 4.81 M/mm3 (4.00-5.60); RDW 13.8 % (11.9-15.9); WHITE BLOOD COUNT 7.9 K/mm3 (4.0-10.0)
[2018-08-15 14:05] LABS: INR 1.02 (0.83-1.09)
[2018-08-15 14:09] LABS: ALBUMIN 4.1 g/dl (3.4-5.0); ALK PHOS 74 U/L (45-117); ANION GAP 7 MMOL/L (8-16); BILIRUBIN,TOTAL 0.7 mg/dL (0.2-1); BLOOD UREA NITROGEN 15 mg/dL (7-18); CALCIUM 8.7 mg/dL (8.5-10.1); CHLORIDE 106 mmol/L (98-107); CO2 24 mmol/L (21-32); GLUCOSE,RANDOM 111 mg/dL (74-106); POTASSIUM 3.9 mmol/L (3.5-5.1); SGOT/AST 16 U/L (15-37); SGPT/ALT 30 U/L (13-61); SODIUM 137 mmol/L (136-145); TOT PROT 7.3 g/dl (6.4-8.2)
[2018-08-15] MEDS ORDERED: HYDROmorphone HCl 2 MG/ML VIAL IM ONE (15:15)
--- NOTE | 2018-08-15 17:34 | PN ---
Progress Note (short form) - Note Progress Note: ORTHOPEDIC SURGERY CONSULTATION NOTE Department of Orthopedic Surgery HISTORY OF PRESENT ILLNESS Mr. Kunz is a 47 year old right hand dominant male with a history of hypothyroidism and prior admission in 08/2017 for intractable neck and shoulder pain. The patient was discharged and instructed to follow up for surgery but has not done so. He returns today with sudden, spontaneous recurrence of pain in the neck, right shoulder, right arm, and right pectoralis which renders him able to raise or abduct his arm. He describes some numbness and tingling in his fingers. He has not attempted any pain management. The orthopedic service was consulted for right shoulder pain. Denies any other injuries. Denies numbness, tingling or other constitutional complaints. Denies/Endorses tobacco use, drug use, alcohol abuse. Patient lives with spouse. FAMILY HISTORY non-contributory REVIEW OF SYMPTOMS A twelve-point review of systems was performed and was negative except as noted in HPI. PHYSICAL EXAM Constitutional: Alert and oriented to person, place, and time. Appears well- developed and well-nourished. No acute distress, appropriate mood and affect. Pulmonary: Breathing comfortably, normal air movement, no audible wheezing. Right Upper Extremity: Skin warm, dry, and intact; no lesions, rashes or ulcers noted. Muscle mass equal and symmetric to contralateral side. No atrophy noted. No masses or effusions noted. Tender to palpation at the right shoulder including AC joint, anterior biceps tendon, and pectoralis major muscle tendon. nontender throughout rest of extremity. Limited AROM of right shoulder, although he can flex his arm to 120 degrees with effort. Passively ROM is to 135 degrees of flexion. Joints stable with no pathologic laxity. M/R/U/MSK/AX motor intact; SILT distally; 2+ radial pulses; Cap refill brisk. Tone and reflexes normal. Left Upper Extremity: Skin warm, dry, and intact; no lesions, rashes or ulcers noted. Muscle mass equal and symmetric to contralateral side. No atrophy noted. No masses or effusions noted. No tenderness to palpation all joints; nontender throughout rest of extremity. Full passive and active ROM, free from pain. Joints stable with no pathologic laxity. M/R/U/MSK/AX motor intact; SILT distally; 2+ radial pulses; Cap refill brisk. Tone and reflexes normal. Right Lower Extremity: Skin warm, dry, and intact; no lesions, rashes or ulcers noted. Muscle mass equal and symmetric to contralateral side. No atrophy noted. No masses or effusions noted. No tenderness to palpation all joints; nontender throughout rest of extremity. No cords or calf tenderness No significant calf/ankle edema. Full passive and active ROM, free from pain. Joints stable with no pathologic laxity. EHL/TA/GS motor intact; SILT distally; 2+ DP pulses; Cap refill brisk. Tone and reflexes normal. Left Lower Extremity: Skin warm, dry, and intact; no lesions, rashes or ulcers noted. Muscle mass equal and symmetric to contralateral side. No atrophy noted. No masses or effusions noted. No tenderness to palpation all joints; nontender throughout rest of extremity. No cords or calf tenderness No significant calf/ankle edema. Full passive and active ROM, free from pain. Joints stable with no pathologic laxity. EHL/TA/GS motor intact; SILT distally; 2+ DP pulses; Cap refill brisk. Tone and reflexes normal. Neck: Patient has pain to palpation of the parapsinal musculature, but no tenderness of the spinous processes. There are no stepoffs noticed. He has a positive spurling sign to the right. Active Problems Problem Status Category Onset Arm paresthesia, right Acute Medical Cervical herniated disc Acute Medical Tear of right glenoid labrum Acute Medical Past Medical History Endocrine Hypothyroidism Social History Smoking history Never smoked Aproximately how many 0 cigarettes per day Hx Alcohol Use No Allergies Allergy/AdvReac Type Severity Reaction Status Date / Time No Known Allergies Allergy Verified 08/15/18 09:24 Vital Signs (last) Temp Pulse Resp BP Pulse Ox 98.5 F 63 20 111/80 99 08/15/18 15:35 08/15/18 15:35 08/15/18 15:35 08/15/18 15:35 08/15/18 09:24 Intake and Output 08/13/18 08/14/18 08/15/18 23:59 23:59 23:59 Other: Weight 280 lb Height 6 ft 4 in Body Mass Index (BMI) 34.0 Weight Measurement Method Est/Stated by Patient Laboratory 08/15/18 12:56 08/15/18 12:00 PT with INR 12.00 SEC (9.7-13.0) 08/15/18 12:56 IMAGING I personally reviewed all radiographs, 2018 MRI's and other imaging. They demonstrate a right shoulder labrum tear with no fractures or dislocations of the shoulder. There is a history of disc herniation in the past MRI. ASSESSMENT AND PLAN Mr. Kunz is a 47 year old male presenting status with right upper extremity radicular symptoms, with a right shoulder labrum tear. We have reviewed the imaging and clinical findings in detail, as well as their potential implications. After appropriate informed discussion, the patient was placed in a sling. Plan: -Due to history of cervical disc herniation and sudden worsening of pain and parasthesias and inability to life his arm, I think it's reasonable to order an MRI of the C-spine at this time to rule out worsening of disc herniation. - Pain Control - DVT prophylaxis - Physical therapy to RUE; Sling to RUE for comfort, should limit sling use to avoid stiffness. - Patient should follow up with orthopedics as outpatient for repeat MRI of his right shoulder and re-evaluation. - No orthopedic surgical intervention for right shoulder at this time. All questions were answered. Thank you for involving our team in the care of this patient.
--- NOTE | 2018-08-15 19:40 | HP ---
DATE OF ADMISSION: 08/15/2018 This is a 47-year-old male known to me for some time. He had multiple admissions in the past. His last admission was about a year ago, with neck and shoulder pain. Before that he was admitted 3 years ago with back pain because of disk herniation. He was evaluated by Dr. Silva and a neurologist at that time. He received a spinal injection and got better. 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 He has family. He has 6 children, and mother. Not a smoker. No alcohol abuse. No known allergies. He is also known to have hypothyroidism, on Synthroid. He takes his medications. PHYSICAL EXAMINATION: Vital Signs: Blood pressure 130/80, pulse 73, respirations 20, temperature 98. Weight is 280 pounds. General: Alert, oriented, not in distress. HEENT: Unremarkable. Neck: Supple. Musculoskeletal: Range of motion of the right shoulder is restricted. Range of motion of the hip is normal. Lungs: Clear. Heart: S1 and S2 normal. No S3 or S4. Abdomen: Soft. No organomegaly. Bowel sounds positive. Neurological: Examination grossly normal. Plantars are upgoing on both sides. LABORATORY REPORTS: WBC 7.9, hemoglobin 15.9, platelets 181. Chemistry: Electrolytes are normal. Creatinine 1, blood sugar 111. INR 1.02. Chest x-ray negative. X-ray of the shoulder negative. IMPRESSION: Intractable right shoulder pain. PLAN: Injection for pain. Continue with thyroid medicine. Orthopedic consultation and Neurology consultation. MRI of the shoulder and cervical spine is ordered. Will follow. Jigna [id number]
[2018-08-15] MEDS: HYDROmorphone HCl 2 MG/ML VIAL IM PRN (20:13)
[2018-08-15] MEDS ORDERED: HEPARIN NA (PORCINE) 5,000 UNITS/ML 1ML VIAL IVPUSH SCH (22:00)
[2018-08-15] MEDS: HEPARIN NA (PORCINE) 5,000 UNITS/ML 1ML VIAL SQ SCH (22:50)
[2018-08-15] MEDS: CYCLOBENZAPRINE HCL 10 MG TABLET (FP) PO PRN (23:48)
[2018-08-16] MEDS: HYDROmorphone HCl 2 MG/ML VIAL IM PRN ×4 (05:13→23:50)
[2018-08-16] MEDS: LEVOTHYROXINE NA 150 MCG TABLET PO SCH (06:37)
--- NOTE | 2018-08-16 09:58 | PN ---
Progress Note, Physician Chief Complaint: Rt shoulder pain persists History of Present Illness: Admitted with sevior pain Rt shoulder Evaluated by Ortho,MRI done ,result pending - Current Medication List Current Medications: Active Medications Cyclobenzaprine HCl (Flexeril -) 10 mg PO Q8H PRN PRN Reason: MUSCLE SPASMS Last Admin: 08/15/18 23:48 Dose: 10 mg Heparin Sodium (Porcine) (Heparin -) 5,000 unit SQ BID [facility] Last Admin: 08/15/18 22:50 Dose: 5,000 unit Hydromorphone HCl (Dilaudid Vial -) 2 mg IM Q6H PRN PRN Reason: PAIN LEVEL 6-10 Last Admin: 08/16/18 05:13 Dose: 2 mg Levothyroxine Sodium (Synthroid -) 150 mcg PO DAILY@0700 [facility] Last Admin: 08/16/18 06:37 Dose: 150 mcg - Objective Vital Signs: Vital Signs Temperature 97.7 F 08/16/18 05:16 Pulse Rate 66 08/16/18 05:16 Respiratory Rate 20 08/16/18 05:16 Blood Pressure 134/92 08/16/18 05:16 O2 Sat by Pulse Oximetry (%) 98 08/15/18 21:00 Constitutional: Yes: Severe Distress Eyes: Yes: WNL HENT: Yes: WNL Neck: Yes: WNL Cardiovascular: Yes: WNL Respiratory: Yes: WNL Gastrointestinal: Yes: WNL ...Rectal Exam: Yes: WNL Musculoskeletal: Yes: Joint Stiffness Neurological: Yes: Alert ...Motor Strength: WNL Psychiatric: Yes: Alert Labs: CBC, BMP 08/15/18 12:56 08/15/18 12:00 INR, PTT INR 1.02 (0.83-1.09) 08/15/18 12:56 Assessment/Plan Continue same trt
[2018-08-16] MEDS: CYCLOBENZAPRINE HCL 10 MG TABLET (FP) PO PRN ×2 (10:02→21:00)
[2018-08-16] MEDS: HEPARIN NA (PORCINE) 5,000 UNITS/ML 1ML VIAL SQ SCH ×2 (10:02→21:00)
[2018-08-17] MEDS: LEVOTHYROXINE NA 150 MCG TABLET PO SCH (06:23)
[2018-08-17] MEDS: HYDROmorphone HCl 2 MG/ML VIAL IM PRN ×3 (06:27→19:55)
[2018-08-17] MEDS: CYCLOBENZAPRINE HCL 10 MG TABLET (FP) PO PRN ×2 (08:54→18:28)
[2018-08-17] MEDS: HEPARIN NA (PORCINE) 5,000 UNITS/ML 1ML VIAL SQ SCH ×2 (11:00→22:08)
--- NOTE | 2018-08-17 13:43 | PN ---
Progress Note, Physician Chief Complaint: Still c/o pain Rt shoulder History of Present Illness: MRI of C spine showed herniated discs ,evaluated by Dr kramer neuro surgeon Advised surgery - Current Medication List Current Medications: Active Medications Cyclobenzaprine HCl (Flexeril -) 10 mg PO Q8H PRN PRN Reason: MUSCLE SPASMS Last Admin: 08/17/18 08:54 Dose: 10 mg Heparin Sodium (Porcine) (Heparin -) 5,000 unit SQ BID [facility] Last Admin: 08/17/18 11:00 Dose: 5,000 unit Hydromorphone HCl (Dilaudid Vial -) 2 mg IM Q6H PRN PRN Reason: PAIN LEVEL 6-10 Last Admin: 08/17/18 13:26 Dose: 2 mg Levothyroxine Sodium (Synthroid -) 150 mcg PO DAILY@0700 [facility] Last Admin: 08/17/18 06:23 Dose: 150 mcg - Objective Vital Signs: Vital Signs Temperature 97.8 F 08/17/18 06:00 Pulse Rate 62 08/17/18 06:00 Respiratory Rate 20 08/17/18 06:00 Blood Pressure 130/78 08/17/18 06:00 O2 Sat by Pulse Oximetry (%) 98 08/16/18 21:00 Constitutional: Yes: Mild Distress Eyes: Yes: WNL HENT: Yes: WNL Neck: Yes: WNL Cardiovascular: Yes: WNL Respiratory: Yes: WNL Gastrointestinal: Yes: WNL ...Rectal Exam: Yes: Deferred Musculoskeletal: Yes: Joint Stiffness Edema: No Peripheral Pulses WNL: Yes Neurological: Yes: Alert Labs: CBC, BMP 08/15/18 12:56 08/15/18 12:00 INR, PTT INR 1.02 (0.83-1.09) 08/15/18 12:56 Assessment/Plan Percoset for pain
--- NOTE | 2018-08-17 22:13 | CONSULT ---
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 He has a history of intermittent Right upper extremity pain for over 18 months and he was evaluated 1 year ago with MRI suggesting Right shoulder injury for which he was offered surgical repair. He declined and has been using conservative efforts for his pain. Recently, he developed severe progression and "was crying" due to severe pain which did not respond to any of the home remedies and other attempts to achieve relief. He describes severe impairment of his activities of daily living, inability to work and a very poor quality of life. On Physical Exam, he is completely unable to move his Right arm due to pain and he has a positive Spurling's sign on the Right and Lhermitte's phenomenon with electric shocks associated with any neck extension. He has numbness and tingling in his Right hand and a loss of fine motor skills. He has Right C7 paresthesias. 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 A new MRI of the Right shoulder demonstrated a small labral tear and this was evaluated by Dr. Jonnie Rosado. Although this may account for some discomfort and may ultimately require treatment, it does not explain the majority of his symptoms of Cervical Spondylotic Myelopathy. To evaluate further, a new Cervical MRI was obtained which demonstrates interval progression of his spondylosis with a new C34 disc protrusion to the Left which effaces the Left C34 foramen, and increased disc protrusions and cord compression at C45 and C56. C67 spondylosis persists. I explained that surgical intervention is not mandatory, however, given his severe impairment and loss of function in his Right arm as well as the need for strong narcotic analgesia, this may represent the logical next step for him. I explained the risks, benefits and alternatives to various surgical approaches ( anterior, posterior and combined) at 1 or more levels with decompression, buddhism of lordosis and resconstruction. He verbalizes an understanding. I explained that the risks included, but were not limited to: , coma, paralysis, bleeding, infection, CSF leak possibly requiring spinal drainage or additional surgery, failure to fuse, instrumentation migration/malfunction/ malposition and the need for additional surgery. I offered him the option of seeking another opinion or another surgeon. All of his questions were answered. Informed consent was obtained. I informed him that I would discuss his case with Dr. Saeid Ashley and Dr. Jonnie Rosado and return with a proposed plan of care.
[2018-08-18] MEDS: HYDROmorphone HCl 2 MG/ML VIAL IM PRN ×2 (02:04→08:28)
[2018-08-18] MEDS: CYCLOBENZAPRINE HCL 10 MG TABLET (FP) PO PRN (05:23)
[2018-08-18] MEDS: LEVOTHYROXINE NA 150 MCG TABLET PO SCH (06:40)
[2018-08-18 09:19] VITALS: BP 121/76; PULSE 65; TEMP 98.2
[2018-08-18] MEDS: HEPARIN NA (PORCINE) 5,000 UNITS/ML 1ML VIAL SQ SCH (09:53)
--- NOTE | 2018-08-18 10:03 | DS ---
Physical Examination Vital Signs: Vital Signs Temperature 98.2 F 08/18/18 09:19 Pulse Rate 65 08/18/18 09:19 Respiratory Rate 20 08/18/18 09:19 Blood Pressure 121/76 08/18/18 09:19 O2 Sat by Pulse Oximetry (%) 98 08/16/18 21:00 Findings/Remarks: Abmitted with intractable Rt shoulder pain Diagnosed to have cervical disc herniation,evaluated by neurosurgery may need surgical intervention Constitutional: Yes: Mild Distress Eyes: Yes: WNL HENT: Yes: WNL Neck: Yes: WNL Cardiovascular: Yes: WNL Respiratory: Yes: WNL Gastrointestinal: Yes: WNL ...Rectal Exam: Yes: Deferred Renal/: Yes: WNL Breast(s): Yes: WNL Musculoskeletal: Yes: Joint Stiffness Integumentary: Yes: WNL Neurological: Yes: Alert Psychiatric: Yes: Alert Labs: CBC, BMP 08/15/18 12:56 08/15/18 12:00 Discharge Summary Reason For Visit: TEAR OF RIGHT GLENOID LABRUM,PARESTHESIA OF RIGHT Current Active Problems Arm paresthesia, right (Acute) Cervical herniated disc (Acute) Tear of right glenoid labrum (Acute) - Instructions - Home Medications Comprehensive Discharge Medication List: Ambulatory Orders Levothyroxine Sodium [Levo-T] 150 mcg PO DAILY #30 tablet 01/07/18 Levothyroxine [Synthroid -] 150 mcg PO DAILY@0700 tablet 01/07/18 Oxycodone HCl/Acetaminophen [Percocet 5-325 mg Tablet] 1 combo PO Q4H PRN #30 tablet MDD 4 01/07/18
== END 2018-08-18 12:21 | disposition home or self-care (01) | DRG 351 ==
LOC: JER 09:16 → JERFT 09:16 → JERBED 12:33 → J6S 14:27
PROVIDERS: ADMIT Internal Medicine; ATTEND Internal Medicine
DX: S43.491A Other sprain of right shoulder joint, initial encounter (principal); M50.20 Other cervical disc displacement, unspecified cervical region; E03.9 Hypothyroidism, unspecified; R20.2 Paresthesia of skin; X58.XXXA Exposure to other specified factors, initial encounter; Y93.89 Activity, other specified; Y92.89 Other specified places as the place of occurrence of the external cause; Y99.8 Other external cause status
CPT/HCPCS: 36415; 71046-TC-FY; 72050-TC-FY; 72141-TC; 73030-TC-RT-FY; 80053; 82607; 84436; 84443; 84480; 85025; 85610; 86850; 86900; 86901; 99282-25; J1644

== ENCOUNTER 2024-02-02 20:37 | Emergency (ER) | payer OTHER ==
[2024-02-02 20:51] VITALS: BP 120/77; PULSE 74; RESP 18; TEMP 96.1; BMI 30.4
== END 2024-02-02 21:53 | disposition home or self-care (01) ==
LOC: JER 20:37 → JERFT 20:37
DX: S60.862A Insect bite (nonvenomous) of left wrist, initial encounter (principal); W57.XXXA Bitten or stung by nonvenomous insect and other nonvenomous arthropods, initial encounter
CPT/HCPCS: 99282-25

== ENCOUNTER 2024-10-10 11:09 | Emergency (ER) | payer OTHER ==
[2024-10-10 11:17] VITALS: BP 140/89; PULSE 102; RESP 18; TEMP 98.6; BMI 30.4
== END 2024-10-10 12:17 | disposition home or self-care (01) ==
LOC: JERFT 11:09
PROC: 0HQFXZZ Repair Right Hand Skin, External Approach (ICD-10-PCS; principal; 2024-10-10)
DX: S61.216A Laceration without foreign body of right little finger without damage to nail, initial encounter (principal); W26.8XXA Contact with other sharp object(s), not elsewhere classified, initial encounter
CPT/HCPCS: 99283-25